=== PATIENT | male | born 1940 | race Caucasian/White ===

== ENCOUNTER 2016-08-27 01:07 | Outpatient (CLI) | payer MEDICARE, OTHER | END 2016-08-27 01:08 | disposition critical access hospital (66) | DX: R46.89 Other symptoms and signs involving appearance and behavior (principal) | CPT/HCPCS: A0425; A0429 ==

== ENCOUNTER 2016-08-27 01:23 | Emergency (ER) | payer MEDICARE, OTHER ==
--- NOTE | 2016-08-27 01:33 | ED Physician Documentation ---
PD HPI ALTERED MENTAL STATUS - Stated complaint Stated Complaint: AGGRESSIVE W/STAFF - Chief complaint Chief Complaint: Neuro - History obtained from History obtained from: Family, EMS, Other (patient is too demented to contribute to HPI or ROS.) - History of Present Illness Timing - onset: Other Basline status: Ambulatory, Confused, Disoriented, Assisted living Recently seen: Not recently seen - Additional information Additional information: patient was being aggressive with staff of [facility] and thus sent to emergency department. he started living at [facility] a few weeks ago. Review of Systems Unable to obtain: Dementia PD PAST MEDICAL HISTORY - Past Medical History Past Medical History: Yes Neuro: Other GI: GERD - Past Surgical History Past Surgical History: Yes General: Colonoscopy - Present Medications Home Medications: Ambulatory Orders Medication Instructions Recorded Confirmed Aspirin [Aspir 81] 81 mg PO DAILY 02/08/14 08/14/14 Donepezil [Aricept] 10 mg PO BID 02/08/14 08/14/14 Folic Acid 1 mg PO DAILY 02/08/14 08/14/14 Omeprazole [Prilosec] 20 mg PO DAILY 02/08/14 08/14/14 Doxycycline Hyclate [Vibramycin] 100 mg PO BID #20 capsule 08/14/14 Fluticasone Propionate [Flovent 08/14/14 08/14/14 Diskus] - Allergies Allergies/Adverse Reactions: Allergies Allergy/AdvReac Type Severity Reaction Status Date / Time No Known Drug Allergies Allergy Verified 02/08/14 10:32 - Social History Does the pt smoke?: No Smoking Status: Never smoker Does the pt drink ETOH?: Yes Does the pt have substance abuse?: No - Immunizations Immunizations are current?: Yes - POLST Patient has POLST: No PD ED PE NORMAL - Vitals Vital signs reviewed: Yes - General General: No acute distress, Well developed/nourished, Other (awake, alert, confused, inappropriate answers that are often unintelligible) - HEENT HEENT: PERRL, EOMI, Moist mucous membranes - Neck Neck: Supple, no meningeal sign - Cardiac Cardiac: RRR, No murmur - Respiratory Respiratory: No respiratory distress, Clear bilaterally - Abdomen Abdomen: Soft, Non tender - Derm Derm: Normal color, Warm and dry - Extremities Extremities: No edema - Neuro Neuro: Alert and oriented X 3, 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, No motor deficit, No sensory deficit PD ED PE EXPANDED - GCS Eye Opening: Spontaneous Motor: Obeys Commands Verbal: Confused Total: 14 Results - Vitals Vitals: Oxygen O2 Source Room air - Labs Labs: Laboratory Tests 08/27/16 08/27/16 08/27/16 01:45 01:45 02:21 WBC 9.5 RBC 4.22 L Hgb 14.8 Hct 42.6 MCV 100.9 H MCH 35.1 H MCHC 34.8 RDW 14.9 Plt Count 132 MPV 7.9 Neut # 8.7 H Lymph # 0.3 L Patrick # 0.3 Eos # 0.1 Baso # 0.2 H Absolute Nucleated RBC 0.00 Nucleated RBCs 0.0 Sodium 139 Potassium 3.9 Chloride 102 Carbon Dioxide 28 Anion Gap 9.0 BUN 21 H Creatinine 1.1 Estimated GFR (MDRD) 65 L Glucose 151 H Lactic Acid 0.9 Calcium 9.7 Total Bilirubin 1.9 H AST 23 ALT 22 Alkaline Phosphatase 81 Total Protein 7.4 Albumin 4.7 Globulin 2.7 Albumin/Globulin Ratio 1.7 Lipase 19 L Urine Color Urine Clarity Urine pH Ur Specific [place] Urine Protein Urine Glucose (UA) Urine Ketones Urine Occult Blood Urine Nitrite Urine Bilirubin Urine Urobilinogen Ur Leukocyte Esterase Ur Microscopic Review Urine Culture Comments Ethyl Alcohol < 5.0 08/27/16 02:35 WBC RBC Hgb Hct MCV MCH MCHC RDW Plt Count MPV Neut # Lymph # Patrick # Eos # Baso # Absolute Nucleated RBC Nucleated RBCs Sodium Potassium Chloride Carbon Dioxide Anion Gap BUN Creatinine Estimated GFR (MDRD) Glucose Lactic Acid Calcium Total Bilirubin AST ALT Alkaline Phosphatase Total Protein Albumin Globulin Albumin/Globulin Ratio Lipase Urine Color YELLOW Urine Clarity CLEAR Urine pH 6.0 Ur Specific [place] 1.020 Urine Protein NEGATIVE Urine Glucose (UA) NEGATIVE Urine Ketones NEGATIVE Urine Occult Blood TRACE-INTA Urine Nitrite NEGATIVE Urine Bilirubin NEGATIVE Urine Urobilinogen 0.2 (NORMAL) Ur Leukocyte Esterase NEGATIVE Ur Microscopic Review NOT INDICATED Urine Culture Comments NOT INDICATED Ethyl Alcohol - Rads (name of study) CT head Radiology: Prelim report reviewed, See rad report chest xray Radiology: Prelim report reviewed, See rad report PD MEDICAL DECISION MAKING - ED course Complexity details: reviewed results, re-evaluated patient (unremarkable test results; suspect worsening of underlying dementia, particularly with recent cues removed from patient's standpoint), considered differential, d/w patient Departure - Departure Disposition: 01 Home, Self Care Clinical Impression: Dementia Qualifiers: Qualified Code(s): F03.91 - Unspecified dementia with behavioral disturbance Condition: Good Instructions: ED Confusion, ED Dementia Caregiver Support Discharge Date/Time: 08/27/16 04:51
[2016-08-27 01:55] LABS: BASOPHILS # (AUTO) 0.2 10^3/uL (0.0-0.1); BASOPHILS % (AUTO) 2.2 %; EOSINOPHILS # (AUTO) 0.1 10^3/uL (0.0-0.7); EOSINOPHILS % (AUTO) 0.8 %; HCT - HEMATOCRIT 42.6 % (42.0-52.0); HGB - HEMOGLOBIN 14.8 g/dL (14.0-18.0); LYMPHOCYTES # (AUTO) 0.3 10^3/uL (1.5-3.5); LYMPHOCYTES % (AUTO) 3.2 %; MEAN CORPUSCULAR HEMOGLOBIN 35.1 pg (27.0-31.0); MEAN CORPUSCULAR HGB CONC 34.8 g/dL (32.0-36.0); MEAN CORPUSCULAR VOLUME 100.9 fL (80.0-94.0); MEAN PLATELET VOLUME 7.9 fL (7.4-11.4); MONOCYTES # (AUTO) 0.3 10^3/uL (0.0-1.0); MONOCYTES % (AUTO) 2.8 %; NEUTROPHILS # (AUTO) 8.7 10^3/uL (1.5-6.6); RED BLOOD COUNT 4.22 10^6/uL (4.70-6.10); RED CELL DISTRIBUTION WIDTH 14.9 % (12.0-15.0); UNCORRECTED WHITE BLOOD COUNT 9.5 x10^3/uL; WHITE BLOOD COUNT 9.5 x10^3/uL (4.8-10.8)
[2016-08-27 02:05] LABS: ALBUMIN/GLOBULIN RATIO 1.7 (1.0-2.2); BILIRUBIN,TOTAL 1.9 mg/dL (0.2-1.0); BUN - BLOOD UREA NITROGEN 21 mg/dL (6-20); CALCIUM 9.7 mg/dL (8.5-10.3); CARBON DIOXIDE - CO2 28 mmol/L (21-32); CHLORIDE 102 mmol/L (101-111); CREATININE 1.1 mg/dL (0.6-1.2); GFR - MDRD 65 (>89); GLUCOSE 151 mg/dL (70-100); LIPASE 19 U/L (22-51); POTASSIUM 3.9 mmol/L (3.5-5.0); SODIUM 139 mmol/L (135-145); TOTAL PROTEIN 7.4 g/dL (6.7-8.2)
--- NOTE | 2016-08-27 02:41 | CT Preliminary Report ---
Exam: CT Head W/O IMPRESSION: Generalized age-related cortical atrophic changes without evidence of acute intracranial abnormality. [facility] SITE ID: [id number]
--- NOTE | 2016-08-27 02:43 | CT Report ---
EXAM: CT HEAD EXAM DATE: 08/27/2016 02:20 AM. CLINICAL HISTORY: Decreased mental status. COMPARISON: 02/08/2014. TECHNIQUE: Multiaxial CT images were obtained from the foramen magnum to the vertex. IV contrast: Non e. Reformats: Coronal. In accordance with CT protocol optimization, one or more of the following dose reduction techniques w ere utilized for this exam: automated exposure control, adjustment of mA and/or KV based on patient s ize, or use of iterative reconstructive technique. FINDINGS: Parenchyma: No intraparenchymal hemorrhage. No evidence of mass, midline shift, or CT findings of acu te infarction. Rao-white differentiation is distinct. Extraaxial Spaces: Normal for age. No subdural or epidural collections identified. Ventricles: The ventricles and cortical sulci are enlarged, consistent with age-related tissue loss. Sinuses: Imaged paranasal sinuses, orbits, and mastoids show no significant abnormality. Bones: No evidence of fracture or calvarial defect. Other: Diffuse chronic microangiopathic white matter changes are evident. IMPRESSION: Generalized age-related cortical atrophic changes without evidence of acute intracranial abnormality. [facility] Referring Provider Line: [phone] SITE ID: [id number]
[2016-08-27 02:44] LABS: BILIRUBIN,URINE NEGATIVE (NEGATIVE)
--- NOTE | 2016-08-27 02:44 | XRAY Preliminary Report ---
Exam: XR Chest 2 View PA/LAT IMPRESSION: 1. Small lung volumes with borderline heart size and hypoventilatory changes. 2. Possible hiatal hernia. [facility] SITE ID: [id number]
[2016-08-27 02:45] LABS: UA CHARGE (STRIP ONLY) YES; UR CULTURE IF IND NOT INDICATED
--- NOTE | 2016-08-27 02:46 | XRAY Report ---
EXAM: CHEST RADIOGRAPHY EXAM DATE: 08/27/2016 02:21 AM. CLINICAL HISTORY: Decreased mental status. Aggressive behavior. COMPARISON: 08/14/2014. TECHNIQUE: 2 views. FINDINGS: Lungs/Pleura: Small lung volumes with hypoventilatory changes. No pleural effusion seen. No pneumotho rax. Possible hiatal hernia. Mediastinum: Heart size normal to upper normal. Other: None. IMPRESSION: 1. Small lung volumes with borderline heart size and hypoventilatory changes. 2. Possible hiatal hernia. [facility] Referring Provider Line: [phone] SITE ID: [id number]
[2016-08-27 04:30] VITALS: BP 143/80
[2016-08-27] MEDS ORDERED: QUEtiapine 25 MG TABLET PO STA (04:32)
== END 2016-08-27 04:51 | disposition home or self-care (01) ==
LOC: EDUNIT# → ED 01:23
DX: F03.91 Unspecified dementia, unspecified severity, with behavioral disturbance (principal); Z79.82 Long term (current) use of aspirin
CPT/HCPCS: 36415; 51701; 70450; 71020; 80053; 81003; 83605; 83690; 85025; 99283; 99284; A9270; G0480; 80320; 81001; 87086

== ENCOUNTER 2016-08-27 05:05 | Outpatient (CLI) | payer MEDICARE, OTHER | END 2016-08-27 05:06 | disposition home or self-care (01) | DX: F03.91 Unspecified dementia, unspecified severity, with behavioral disturbance (principal) | CPT/HCPCS: A0425; A0428 ==

== ENCOUNTER 2016-08-31 09:29 | Outpatient (CLI) | payer MEDICARE, OTHER | END 2016-08-31 09:30 | disposition critical access hospital (66) | LOC: EMS 09:29 | PROVIDERS: ATTEND Surgery | DX: R39.9 Unspecified symptoms and signs involving the genitourinary system (principal) | CPT/HCPCS: A0425; A0429 ==

== ENCOUNTER 2016-08-31 09:45 | Inpatient (IN) | payer MEDICARE, OTHER ==
[2016-08-31 10:29] LABS: BILIRUBIN,URINE NEGATIVE (NEGATIVE); PH,URINE 5.5 PH (5.0-7.5)
[2016-08-31 10:30] LABS: UA w/ MICROSCOPIC CHARGE YES
[2016-08-31 10:36] LABS: UR CULTURE IF IND NOT INDICATED; WBC,URINE 0-3 /HPF (0-3)
--- NOTE | 2016-08-31 10:37 | ED Physician Documentation ---
PD HPI MALE - Stated complaint Stated Complaint: MALE - Chief complaint Chief Complaint: Abd Pain - History obtained from History obtained from: EMS - History of Present Illness Timing - details: Gradual onset, Still present Associated symptoms: Other (incontinent and aggressive) Similar symptoms before: Has not had sx before Recently seen: Emergency Dept (Seen in the ED for aggitation and medicated with seroquel. He has continued to be aggitated and he has been re-dosed with medications and the indicates he is over sedated.) - Additional information Additional information: 76 y/o male resident of [facility] has developed acute urinary incontience. He has a distended lower abdomen and aggressive behavior. He has recently been placed at [facility] with advancing dementia. His believes his dementia was noticed about 4 years ago. Review of Systems Constitutional: denies: Fever Eyes: denies: Decreased vision Ears: denies: Ear pain Nose: denies: Congestion Throat: denies: Sore throat Respiratory: denies: Cough GI: reports: Abdominal Pain. denies: Vomiting : reports: Incontinent. denies: Dysuria Skin: denies: Rash Musculoskeletal: denies: Neck pain, Back pain, Extremity pain Neurologic: denies: Generalized weakness, Focal weakness, Numbness Psychiatric: reports: Other (aggressive) PD PAST MEDICAL HISTORY - Past Medical History Neuro: Other GI: GERD - Past Surgical History Past Surgical History: Yes General: Colonoscopy - Present Medications Home Medications: Ambulatory Orders Medication Instructions Recorded Confirmed Aspirin [Aspir 81] 81 mg PO DAILY 02/08/14 08/31/16 Donepezil [Aricept] 10 mg PO BID 02/08/14 08/31/16 Folic Acid 1 mg PO DAILY 02/08/14 08/31/16 Omeprazole [Prilosec] 20 mg PO DAILY 02/08/14 08/31/16 Doxycycline Hyclate [Vibramycin] 100 mg PO BID #20 capsule 08/14/14 08/31/16 Fluticasone Propionate [Flovent 08/14/14 08/14/14 Diskus] LORazepam [Ativan] 2 mg PO DAILY 08/31/16 08/31/16 Melatonin 5 mg 08/31/16 Memantine HCl 08/31/16 Oxybutynin Chloride 5 mg PO DAILY 08/31/16 08/31/16 QUEtiapine [SEROquel] 25 mg PO DAILY 08/31/16 08/31/16 risperiDONE [RisperDAL] 1 mg PO DAILY PRN 08/31/16 08/31/16 - Allergies Allergies/Adverse Reactions: Allergies Allergy/AdvReac Type Severity Reaction Status Date / Time No Known Drug Allergies Allergy Verified 02/08/14 10:32 - Social History Does the pt smoke?: No Smoking Status: Never smoker Does the pt drink ETOH?: Yes Does the pt have substance abuse?: No - Immunizations Immunizations are current?: Yes - POLST Patient has POLST: No PD ED PE NORMAL - Vitals Vital signs reviewed: Yes (hypertensive ) - General General: No acute distress, Well developed/nourished - HEENT HEENT: Atraumatic, PERRL, EOMI - Neck Neck: Supple, no meningeal sign - Cardiac Cardiac: RRR, No murmur - Respiratory Respiratory: No respiratory distress, Clear bilaterally - Abdomen Abdomen: Soft, Other (There is lower abdomen distention with tenderness and firmness consistent with an overdistended bladder. ) - Back Back: No CVA TTP, No spinal TTP - Derm Derm: Normal color, Warm and dry, No rash - Extremities Extremities: No deformity, No edema - Neuro Neuro: No motor deficit, No sensory deficit Results - Vitals Vitals: Vital Signs - 24 hr 08/31/16 08/31/16 08/31/16 09:46 10:23 12:13 Temperature 37.1 C Heart Rate 98 82 73 Respiratory 18 18 18 Rate Blood Pressure 161/95 H 145/92 H 135/70 H O2 Saturation 96 96 95 Oxygen O2 Source Room air - Labs Labs: Laboratory Tests 08/31/16 08/31/16 08/31/16 10:15 12:05 12:05 WBC 10.3 RBC 3.72 L Hgb 13.2 L Hct 37.3 L MCV 100.4 H MCH 35.6 H MCHC 35.5 RDW 14.9 Plt Count 115 L MPV 8.3 Neut # 8.5 H Lymph # 0.7 L [place] # 1.1 H Eos # 0.0 Baso # 0.0 Absolute Nucleated RBC 0.00 Nucleated RBCs 0.0 Sodium 142 Potassium 3.9 Chloride 104 Carbon Dioxide 27 Anion Gap 11.0 BUN 83 H* Creatinine 3.6 H Estimated GFR (MDRD) 17 L Glucose 150 H Calcium 9.7 Total Bilirubin 1.5 H AST 31 ALT 32 Alkaline Phosphatase 64 Total Protein 6.9 Albumin 4.1 Globulin 2.8 Albumin/Globulin Ratio 1.5 Lipase 21 L Urine Color YELLOW Urine Clarity CLEAR Urine pH 5.5 Ur Specific [place] 1.025 Urine Protein TRACE Urine Glucose (UA) NEGATIVE Urine Ketones NEGATIVE Urine Occult Blood LARGE H Urine Nitrite NEGATIVE Urine Bilirubin NEGATIVE Urine Urobilinogen 0.2 (NORMAL) Ur Leukocyte Esterase NEGATIVE Urine RBC 11-25 H Urine WBC 0-3 Ur Squamous Epith Cells RARE Squamous Urine Bacteria Few Ur Microscopic Review INDICATED Urine Culture Comments NOT INDICATED PD MEDICAL DECISION MAKING - ED course ED course: 76 y/o male is found to have acute urinary retention and a spears is placed. He is aggressive and requires restraint. He does appear sedated and his BUN and Cr are consistent with 3 days of obstruction. There is some blood in the urine after obstruction is resolved. Departure - Departure Disposition: [address] [facility] DC/Xfer Clinical Impression: Acute urinary retention, Acute kidney injury Dementia Qualifiers: Dementia type: Alzheimer's disease Alzheimer's disease onset: unspecified onset Dementia behavioral disturbance: with behavioral disturbance Qualified Code(s): G30.8 - Other Alzheimer's disease; F02.81 - Dementia in other diseases classified elsewhere with behavioral disturbance
[2016-08-31 12:16] LABS: BASOPHILS % (AUTO) 0.3 %; EOSINOPHILS % (AUTO) 0.2 %; HCT - HEMATOCRIT 37.3 % (42.0-52.0); HGB - HEMOGLOBIN 13.2 g/dL (14.0-18.0); LYMPHOCYTES # (AUTO) 0.7 10^3/uL (1.5-3.5); LYMPHOCYTES % (AUTO) 6.4 %; MEAN CORPUSCULAR HEMOGLOBIN 35.6 pg (27.0-31.0); MEAN CORPUSCULAR HGB CONC 35.5 g/dL (32.0-36.0); MEAN CORPUSCULAR VOLUME 100.4 fL (80.0-94.0); MEAN PLATELET VOLUME 8.3 fL (7.4-11.4); MONOCYTES # (AUTO) 1.1 10^3/uL (0.0-1.0); MONOCYTES % (AUTO) 10.3 %; NEUTROPHILS # (AUTO) 8.5 10^3/uL (1.5-6.6); NEUTROPHILS % (AUTO) 82.8 %; RED BLOOD COUNT 3.72 10^6/uL (4.70-6.10); RED CELL DISTRIBUTION WIDTH 14.9 % (12.0-15.0); UNCORRECTED WHITE BLOOD COUNT 10.3 x10^3/uL; WHITE BLOOD COUNT 10.3 x10^3/uL (4.8-10.8)
[2016-08-31 12:40] LABS: ALBUMIN/GLOBULIN RATIO 1.5 (1.0-2.2); BILIRUBIN,TOTAL 1.5 mg/dL (0.2-1.0); CALCIUM 9.7 mg/dL (8.5-10.3); CREATININE 3.6 mg/dL (0.6-1.2); POTASSIUM 3.9 mmol/L (3.5-5.0); TOTAL PROTEIN 6.9 g/dL (6.7-8.2)
[2016-08-31] MEDS ORDERED: SODIUM CHLORIDE 0.9% 1,000 ML IV ONE (13:05)
[2016-08-31] MEDS ORDERED: SODIUM CHLORIDE FLUSH 0.9% 10 ML SYRINGE IVP PRN (14:04)
[2016-08-31] MEDS: SODIUM CHLORIDE FLUSH 0.9% 10 ML SYRINGE IVP SCH (20:19)
[2016-08-31] MEDS: SODIUM CHLORIDE 0.9% 1,000 ML IV SCH (20:19)
[2016-08-31] MEDS: DONEPEZIL 5 MG TABLET PO SCH (20:25)
[2016-08-31] MEDS: TAMSULOSIN 0.4 MG CAPSULE PO SCH (20:25)
[2016-08-31] MEDS: MEMANTINE 5 MG TABLET PO SCH (20:25)
--- NOTE | 2016-08-31 21:21 | Ultrasound Preliminary Report ---
Exam: US Retroperitoneal Limited IMPRESSION: 1. Limited exam. Findings are suspicious for mild right renal pelviectasis. [facility] SITE ID: [id number]
--- NOTE | 2016-08-31 21:23 | Ultrasound Report ---
EXAM: RENAL ULTRASOUND Retroperitoneal limited EXAM DATE: 08/31/2016 08:17 PM. CLINICAL HISTORY: 1.5L urinary retention, obstructive acute kidney . King placed. COMPARISON: None. TECHNIQUE: Real-time scanning was performed with static images obtained. FINDINGS: Limited bedside exam due to patient agitation. Right Kidney: 10 x 6.2 x 5.7 cm. Renal cortical thickness and echotexture appear within normal limit s. Findings are suspicious for mild right renal pelviectasis. Limited exam. Left Kidney: 9.2 x 4.5 x 5.3 cm. Normal echotexture with no stones, contour-deforming masses, or hyd ronephrosis. Bladder: Bladder is decompressed. King catheter is in place. Limited bedside exam due to patient agitation. IMPRESSION: 1. Limited exam. Findings are suspicious for mild right renal pelviectasis. [facility] Referring Provider Line: [phone] SITE ID: [id number]
[2016-08-31] MEDS ORDERED: QUEtiapine 25 MG TABLET ONE (21:25)
[2016-08-31] MEDS ORDERED: QUEtiapine 25 MG TABLET PO SCH (22:00)
[2016-09-01] MEDS: QUEtiapine 25 MG TABLET PO PRN ×3 (04:55→18:26)
[2016-09-01] MEDS: SODIUM CHLORIDE FLUSH 0.9% 10 ML SYRINGE IVP SCH ×3 (05:11→21:43)
[2016-09-01 06:01] LABS: HCT - HEMATOCRIT 33.2 % (42.0-52.0); HGB - HEMOGLOBIN 11.6 g/dL (14.0-18.0); MEAN CORPUSCULAR HEMOGLOBIN 35.5 pg (27.0-31.0); MEAN CORPUSCULAR HGB CONC 34.8 g/dL (32.0-36.0); MEAN PLATELET VOLUME 8.7 fL (7.4-11.4); RED BLOOD COUNT 3.25 10^6/uL (4.70-6.10); RED CELL DISTRIBUTION WIDTH 14.7 % (12.0-15.0); WHITE BLOOD COUNT 6.9 x10^3/uL (4.8-10.8)
[2016-09-01] MEDS: PANTOPRAZOLE 40 MG TABLET PO SCH (06:08)
[2016-09-01] MEDS: SODIUM CHLORIDE 0.9% 1,000 ML IV SCH ×4 (06:08→23:07)
[2016-09-01 06:17] LABS: CREATININE 1.4 mg/dL (0.6-1.2); MAGNESIUM 2.3 mg/dL (1.7-2.8); PHOSPHORUS 2.4 mg/dL (2.5-4.6); POTASSIUM 3.5 mmol/L (3.5-5.0)
--- NOTE | 2016-09-01 06:42 | HISTORY & PHYSICAL EXAMINATION ---
DATE OF ADMISSION: 08/31/2016 PRIMARY CARE PHYSICIAN: Dr. Durbin. He has also [facility] Vital MD,Neurology. CHIEF COMPLAINT: Per the patient's , he got 2 mg of lorazepam at [facility] and has been minimally responsive ever since. HISTORY OF PRESENT ILLNESS: The patient is a 76-year-old gentleman, retired from the , who worked for the [employer], who as of 3-1/2 weeks is a resident of the Dementia Unit of [facility] [place]. He unfortunately needed to be placed there for progressive agitated dementia; up until that point he had been able to be at home, with his taking care of him. At home , for his dementia he had been on memantine, donzepil and seroquel at . His is Maru. He is brought to the hospital today from [facility] due to hypoactive delirium. Four days ago, on the 27 of August, he was brought to the emergency room because of aggressiveness at [facility]. Here a CT of the head and workup for any infection or metabolic problems was done with no localizing findings, and he was sent back to [facility]. On the , evidently again there was an episode of agitated delirium, and some complaint of nonspecifc abdominal pain, and in the dementia unit where he is, for the first time since his residency there, he was given 2 mg of oral lorazepam. (of note the MAR from there indicates 1/2 of a 2 mg Ativan, but Mrs Ortiz says they gave him the full 2 mg tablet.) Mrs. Ortiz notes that the next morning she went to help feed him breakfast, and when he got there, 2 assistants were helping him get out of the bathroom, and she says he could barely stand without a 2-person assist. He helped to feed him , but he was minimally responsive and did not recognize her. This is an especially profound change in this gentleman, as even with his dementia, he had continued to do his exercises such as pushups and had been continuing his exercise regimen even in the dementia unit of [facility].. Mrs Hickman denies any other new deficits, and his cognition prior to this dose of Ativan, but she does note that the agitation and delirium had been slowly building at home, as well, and that is why he had to be eventually placed. The other significant finding with his dementia, is that for probably over 2 months , she has noticed that he is having some hallucinations. She says usually they are "benevolent" people/hallucinations, but recently he had to get her downstairs when he was still at home, saying that there were bloody bodies and babies in the house. She also on occasion had to use her cane to push him away and tell him not to come near her, as his aggressive tendencies progressed. When he was brought to the emergency room today, August 31, 2016, not only was he very sedate, but he was found to have a significant abdominal distention, was found to have 1500 mL of urinary retention, which drained immediately upon a Spears catheter placement, and his BUN and creatinine were markedly changed from just 4 days ago; they had been BUN and creatinine 21 and 1.1, and now were 83 and 3.6. Of note, he has been on an anticholinergic in the form of oxybutynin 3 times daily 5 mg tablets; however, he has been on those since at least the beginning of August and late July per his MAR. Ms Ortiz indicates his prostate was "checked" recently and she was told it was not enlareged, however, she does report he had hesitancy and frequency, and "went into the bathroom frequenctly " when he was still home, but she realizes she cant say wheter he actually voided on each of the bathroom visits. PAST MEDICAL HISTORY 1. Dementia, and he is followed Darlene Vital MD, and as above most recent requiring admission to an inpatient dementia unit. 2. GERD. 3. No reported history of benign prostatic hypertrophy but urinary symptoms at night as above. No history of hypertension, coronary disease, diabetes, or cancer. 4. No history of surgical procedures. MEDICATIONS This is obtained from [facility]: 1. Oxybutynin 5 mg tabs 3 times daily. 2. Omeprazole 20 mg 3 times daily. 3. Quetiapine 25 mg tablets once daily some time between 6 and 10 p.m per JUN. 4. Vitamin D 5000 units once daily. 5. Artificial tears. He has only gotten them once on 08/30/2016. 6.. Aspirin 81 mg once daily. (unclear indication) 2. Dulcolax tablets 5 mg was given on 08/26/2016 through the 08/31/2015 consecutive days each day. 3. Donepezil 23 mg 1 tablet at bedtime. 4. Folic acid 400 mcg once daily. 5. Melatonin 5 mg tablet one daily at bedtime. 6. Memantine hydrochloride 10 mg twice daily. 7. Risperdal 1 mg tablet 3 times daily if needed for delusional episodes or agitation. He was given 2 of those doses on 08/27/2016; otherwise, there are none in the last 30 days, and also on 08/27/2016 and one on 08/28/2016 of the Risperdal 1 mg tablets. 8. Lorazepam 2 mg tablet half a tab by mouth every 8 hours as needed. He was given that on 08/29/2016 and 08/30/2016. ALLERGIES: NO KNOWN DRUG ALLERGIES. HABITS: He smoked many years ago but quit in the 1960s. He was never a heavy drinker and never used use any sort of recreational or illicit drugs. He has been for at least 52 years to his . He has been on [place] since 1981. He has 2 children. With his work, he worked for a [employer] and was stationed in many areas, including [facility], [place], and [facility]. REVIEW OF SYSTEMS CONSTITUTIONAL: Review of systems obtained from the . She denies any unintentional weight loss. No fevers. HEAD, EARS, EYES, NOSE, AND THROAT: She denies that he has complained of any vision changes; does not wear glasses. CARDIOVASCULAR: She denies that he has had any complaints of chest pain, heart racing, shortness of breath, or lower extremity edema. RESPIRATORY: No cough or wheezing. GASTROINTESTINAL: She denies any appetite change. No vomiting or diarrhea. She says he does have generally a good bowel movement when they give him his MiraLax. No blood per rectum, as far she knows. GENITOURINARY: She says that his prostate was recently checked, and "it was not enlarged." She says that he did frequently go to the bathroom, although she cannot be certain that he actually had a void and so would go in there, so it is positive for frequency. She denies dysuria. MUSCULOSKELETAL: She did recently note that he has a knee ecchymoses. She did say he has not had any falls when he was home with her, but she thinks he has probably had at least one fall in the half-way. Of note, he would jog and do exercises when he was at home and had continued in his dementia hewitt. SKIN: As noted, she notes a small bruise on his left knee and behind his left knee. NEUROLOGIC: As per the HPI. He does, in addition to the hallucinations, have fairly recent onset of hand tremors bilaterally and some stumbling, which is new. She denies any trouble chewing or swallowing. Hallucinations as noted above. ENDOCRINE: She denies any excessive thirst or excessive appetite, although he is asking for something to drink right now. PHYSICAL EXAMINATION IN THE EMERGENCY ROOM VITAL SIGNS: He is afebrile at 36.7, heart rate 71, respiratory rate 12-18 with a room air oxygenation of 95% to 98%, blood pressure 131/68. On presentation prior to decompression of his bladder, he was 161/95 with a heart rate of 98. GENERAL: Although he is minimally arousable right now, just his overall gestalt is of a very fit 74-year-old who looks younger than stated age. He has balding hair. HEAD, EYES, EARS, NOSE, AND THROAT: He has a normocephalic, atraumatic head. He occasionally opens his eyes spontaneously, but when I try to open them with a thumb to do a pupil assessment with the light, he squeezes them shut. From what I am able to tell, his pupils are reactive. Sclera are anicteric. He will not open his mouth for me, but per his , he still has his own teeth. I am not able to tell if his tongue is dry. SKIN: Overall his skin is warm and dry. His cheeks are somewhat flushed. NECK: Supple. He has +2 carotids with no bruit. CHEST: Very fit looking, especially for 74-year-old. HEART: Regular S1, S2 with no appreciable extra sounds. He has no appreciable lower extremity edema. His periphery is warm. There are no varicosities, RESPIRATIONS: Respirations were auscultated anteriorly, were clear to auscultation. They are unlabored at rest on no oxygen. ABDOMEN: Very slightly rounded. It is soft, nontender with positive bowel sounds. There is no suprapubic tenderness elicited. There is no organomegaly appreciated. He has a Spears catheter, which is draining blood tinged urine. There is currently 600 mL in the bag, and the nurse notes that is new since the 1500 mL initial output with the Spears was placed. EXTREMITIES He has 2+ reflexes bilaterally and brachial. His muscular tone is normal, and especially good a 74-year-old, both of his upper and lower extremities. NEUROLOGICAL: Exam was precluded by his very drowsy state. Occasionally he tries to mutter something unintelligible. He does not identify his right now, and again his eyes are mostly shut, other than squeezing them shut when I try to look into them, and holding his mouth shut when I tried to look into it; and she indicates that is "pretty much how he has been since he got the dose of Ativan. LABORATORY/STUDIES CBC: White count 10.3, hemoglobin 13.2, hematocrit 37.3; platelets 215,000. CHEMISTRY: Sodium 142, potassium 3.9, chloride 104, bicarbonate 27, BUN 83, creatinine 3.6, glucose 150; this is in marked contradistinction to his BUN and creatinine just 4 days ago on 08/27/2016, which were BUN 21 and creatinine 1.1; and at that time, his CBC was not much different, but his hematocrit was 42.6 URINALYSIS: Today after Spears placement, large occult blood, 11-25 red cells, and again, this is after a Spears placement, rare squamous cells and a few bacteria. Head CT was not done today; head CT done on 08/27/2016 showed generalized age- related cortical atrophic changes without acute intracranial abnormality. Chest x-ray on 08/27/2016 showed small lung volumes with borderline heart size and hypoventilatory changes, possible hernia. An ultrasound of both kidneys is ordered and has not been obtained. ASSESSMENT AND PLAN 1. Acute urinary retention: He likely does have BPH, given the blood in the spears bag post placement. ER MD Rivas did not have difficulty with placement. He has already decompressed his bladder with a Spears placement for over 1500 mL. Will start Flomax this pm. Flomax can cause orthostasis, which I would prefer not to cause in this older gentleman, but it sounds like BPH might be a problem and flomax would likely permit earlier removal than would Proscar. . The Spears catheter will remain in place. Unfortunately, it might need to stay in place minimum 7 days before trial removal given the severity of retention although ideally, given his occasional agitation it would be removed as soon as possilbe. Possibly his Ditropan that he is on and is relatevely news even contributing to the problem, given this is an anticholinergic agent, and we will certainly hold it while he has a Spears catheter in place. It would likely be prudent not to renew (of note, inreviewing a discharge summary from 2 yrs ago , he was on far fewer medications, and "less is more " is likley the best approach with his dementia. 2. Acute kidney injury. Given the abrupt change in renal function over 4 days, this is most consistent with obstructive MARTHA. . He will have renal ultrasound of the kidneys done tonight to evaluate if he does have a corresponding hydronephrosis bilaterally, but this was very acute since Wednesday. I will explore also whether lorazepam can actually cause retention as well, but it sounds as though he was having some hesitancy to begin with. As above the ditropan may have been a factor in the retention. Certainly we will avoid lorazepam. He will have gentle hydration as per routine recommendations for post -obstructive MARTHA. he is not having an overly brisk diuresis.. There is no need to have aggressive diuresis. I will recheck potassium, magnesium, and phosphorus in the morning, in case those are low with the diuresis. 3. Hypoactive delirium. Despite his recent history of agitated dementia, he currently has hypoactive delirium likely related to lorazepam. As above, we will not give him any further benzodiazepine, and the recommendation from the neurologist (per the ) was that when and if he requires further medication for agitation, it would be to increase his Seroquel dose, possibly to 25 mg twice daily, or 50 mg at bedtime and NOT to use benzodiazepines. We will see if we can contact his neurologist , since we do not have a geriatric psych person available. 4.) Dementia. He will continue on his Aricept and memantine, as well as nightly Seroquel which I will resume alrume already tonight as per the RN he is already taking sips of fluid by straw. . He should not have any further benzodiazepine. This this gentleman does not have any diagnosis yet of a possible Lewy body dementia; however, the hallucinations, especially along with the 's report of recent start of tremor, as well as some stumbles, could be the start of early parkinsonism. This would be suggestive of Lewy body dementia, since the dementia started prior to the parkinson like symptoms. However, those symptoms could also be simply related to medications. On discharge, we will be sure that Dr. Vital, his neurologist, is aware of the new occasional tremulousness and stumbles, in case he does have early Lewy body dementia. 5. Venous thromboembolism prophylaxis. He will be on Lovenox. 6. COR status. confirms that he is still at this time a FULL CODE. 7. GERD: He will continue on his Prilosec. The does confirm that he does have reflux, and he has a has a hernia 8. Unclear indication for ASA. No DM, CAD, HTN, nor risks for stroke. on d/c consider PCP reeval indication for the ASA. It is just one additional pill he needs to take. Unclear indication Time spent on admit 45+ mins. JOB #: [id number] EXT JOB #:[id number] YANN
[2016-09-01] MEDS: ENOXAPARIN 30 MG/0.3 ML SYRINGE SUBQ SCH (08:53)
[2016-09-01] MEDS: TAMSULOSIN 0.4 MG CAPSULE PO SCH (08:54)
[2016-09-01] MEDS: POLYETHYLENE GLYCOL 3350 17 GM PACKET PO SCH (08:54)
[2016-09-01] MEDS: NEUTRA-PHOS 250 MG TABLET PO SCH ×3 (08:54→18:26)
[2016-09-01] MEDS: FOLIC ACID 1 MG TABLET PO SCH (08:54)
[2016-09-01] MEDS: MEMANTINE 5 MG TABLET PO SCH ×2 (08:54→21:43)
[2016-09-01] MEDS ORDERED: POLYETHYLENE GLYCOL 3350 17 GM PACKET PO SCH (09:00)
--- NOTE | 2016-09-01 11:30 | PROVIDER PROGRESS NOTE ---
Subjective - Prog Note Date Prog Note Date: 09/01/16 (Followup for altered mental status changes and ) Prog Note Time: 11:27 - Subjective Pt reports feeling: Improved Subjective: Patient was seen at bedside. He is eating breakfast without difficulty with the nurse feeding him. He has been agitated and has a history of dementia. Per family patient was in his usual state of health prior to coming to the hospital. He is able to perform all his ADLs without difficulty. he has been talking without difficulty and only agitated certain times. He was given ativan while in the ER and the seems to think he is behaving this way due to the ativan. He can follow simple commands. His sensory is intact. Patient has had no fever, no chills or sweats. He has no constipation or diarrhea. He has not been having any bloody stools or hematuria Current Medications - Current Medications Current Medications: Active Medications Generic Name Dose Route Start Last Admin Trade Name Miahq PRN Reason Stop Dose Admin Donepezil HCl 20 mg 08/31/16 21:00 08/31/16 20:25 Aricept PO 20 mg QPM RAOUL Administration Enoxaparin Sodium 30 mg 09/01/16 09:00 09/01/16 08:53 Lovenox SUBQ Not Given DAILY RAOUL Folic Acid 0.5 mg 09/01/16 09:00 09/01/16 08:54 PO 0.5 mg DAILY RAOUL Administration Sodium Chloride 1,000 mls @ 100 mls/hr 08/31/16 17:00 09/01/16 06:08 Normal Saline 0.9% IV 100 mls/hr .Q10H RAOUL Administration Memantine 10 mg 08/31/16 21:00 09/01/16 08:54 Namenda PO 10 mg BID RAOUL Administration Pantoprazole Sodium 40 mg 09/01/16 07:00 09/01/16 06:08 Protonix PO 40 mg QDAC RAOUL Administration Polyethylene Glycol 17 gm 09/01/16 09:00 09/01/16 08:54 Miralax PO 17 gm DAILY RAOUL Administration Polyethylene Glycol 17 gm 09/01/16 09:00 09/01/16 09:16 Miralax PO Not Given DAILY RAOUL Quetiapine Fumarate 25 mg 09/01/16 21:00 Seroquel PO QPM RAOUL Quetiapine Fumarate 12.5 mg 08/31/16 21:40 09/01/16 10:12 Seroquel PO 12.5 mg TID PRN Administration Anxiety Sodium Chloride 10 ml 08/31/16 14:04 Normal Saline Flush 0.9% IVP PRN PRN NEEDED PER PROVIDER ORDERS Sodium Chloride 10 ml 08/31/16 22:00 09/01/16 13:34 Normal Saline Flush 0.9% IVP Not Given Q8HR RAOUL Sodium Phosphate 250 mg 09/01/16 08:00 09/01/16 12:58 K-Phos Neutral PO Not Given TIDWM RAOUL Tamsulosin HCl 0.4 mg 08/31/16 20:00 09/01/16 08:54 Flomax PO 0.4 mg DAILY RAOUL Administration Aspirin [Aspir 81] 81 mg PO DAILY 02/08/14 Omeprazole [Prilosec] 20 mg PO DAILY 02/08/14 Bisacodyl 5 mg PO DAILY PRN 08/31/16 Cholecalciferol [Vitamin D3] 5,000 units PO DAILY 08/31/16 Donepezil HCl [Aricept] 23 mg PO QPM 08/31/16 Folic Acid 400 mcg PO DAILY 08/31/16 LORazepam [Ativan] 1 mg PO Q8H PRN 08/31/16 Melatonin 5 mg PO QPM 08/31/16 Memantine HCl 10 mg PO BID 08/31/16 Oxybutynin Chloride 5 mg PO TID 08/31/16 Polyethylene Glycol 3350 [Miralax] 17 gm PO DAILY 08/31/16 QUEtiapine [SEROquel] 25 mg PO QPM 08/31/16 Tamsulosin [Flomax] 0.8 mg PO DAILY PM 08/31/16 Objective - Vital Signs/Intake & Output Vital Signs: Vital Signs x48h Temp Pulse Resp BP Pulse Ox 09/01/16 09:00 37 C 76 20 152/77 H 95 09/01/16 04:35 37.1 C 94 16 144/78 H 96 Intake & Output: Intake & Output 08/29/16 08/30/16 08/31/16 09/01/16 23:59 23:59 23:59 23:59 Intake Total 1419 1350 Output Total 1525 550 Balance -106 800 - Objective General Appearance: positive: Alert Eyes Bilateral: positive: PERRL ENT: positive: Pharynx nml, No signs of dehydration Neck: positive: Thyroid nml, No JVD, Trachea midline Respiratory: positive: No respiratory distress, Breath sounds nml Cardiovascular: positive: No murmur, No gallop. negative: Bradycardia, JVD present Peripheral Pulses: 2+ Radial (R), 2+ Radial (L), 2+ Dorsalis pedis (R), 2+ Dorsalis pedis (L) Abdomen: positive: No organomegaly, Nml bowel sounds, No distention. negative: Guarding, Rebound, Splenomegaly Rectal: negative: Black stool Back: positive: Other (distended and with spears). negative: CVA tenderness (R) , CVA tenderness (L) Skin: positive: Color nml, No rash, Warm, Dry. negative: Cyanosis Extremities: positive: Full ROM. negative: Pedal edema, Calf tenderness Neurologic/Psychiatric: positive: Sensation nml, Disoriented to person, Disoriented to place, Disoriented to time, Weakness. negative: Facial droop, Slurred/abnml speech Babinski Reflex: Right: Up, Left: Up - Lab Results Fish Bones: 09/01/16 05:50 09/01/16 05:50 Other Labs: Lab Results x24hrs 09/01/16 09/01/16 Range/Units 05:50 05:50 WBC 6.9 (4.8-10.8) x10^3/uL RBC 3.25 L (4.70-6.10) 10^6/uL Hgb 11.6 L (14.0-18.0) g/dL Hct 33.2 L (42.0-52.0) % MCV 102.0 H (80.0-94.0) fL MCH 35.5 H (27.0-31.0) pg MCHC 34.8 (32.0-36.0) g/dL RDW 14.7 (12.0-15.0) % Plt Count 98 L (130-450) 10^3/uL MPV 8.7 (7.4-11.4) fL Sodium 146 H (135-145) mmol/L Potassium 3.5 (3.5-5.0) mmol/L Chloride 112 H (101-111) mmol/L Carbon Dioxide 27 (21-32) mmol/L Anion Gap 7.0 (6-13) BUN 51 H (6-20) mg/dL Creatinine 1.4 H (0.6-1.2) mg/dL Estimated GFR (MDRD) 49 L (>89) Glucose 151 H (70-100) mg/dL Calcium 9.0 (8.5-10.3) mg/dL Phosphorus 2.4 L (2.5-4.6) mg/dL Magnesium 2.3 (1.7-2.8) mg/dL - Diagnostic Imaging Diagnostic Imaging Comments: Pending MRI of the brain. patient is still having altered mental changes. will check for acute CVA since a CT was completed a week ago without a repeat. Assessment/Plan - Problem List (1) Acute kidney injury Impression: improving. continue with IVF NS for hydration and avoid nephrotoxic medications. urology consult needed. spears to gravity and monitor output. no obstruction or hydronephrosis per ultrasound. continue to monitor for infection. (2) Acute encephalopathy Impression: ongoing. continue to monitor for mental changes and for metabolic changes. He is better eating today but still disoriented. continue with the seroquel and aricept. continue with the mittens. CBC and CMP ordered for morning. Ammonia level WNL. no acidosis. MRI to rule out acute stroke. fall precautions. PT evaluation. OT evaluation (3) Acute urinary retention Impression: ongoing. continue with spears and monitor output. continue to monitor kidney function. urinalysis was negative. continue with flomax. (4) Iron deficiency anemia Impression: new. continue to monitor CBC for acute blood loss. vitamin B12 level on the low end. will give B12 injection. ferrous sulfate ordered. Qualifiers: Iron deficiency anemia type: unspecified iron deficiency Qualified Code(s) : D50.9 - Iron deficiency anemia, unspecified (5) Lewy body dementia with behavioral disturbance Impression: chronic and ongoing. continue with aricept and seroquel. avoid benzodiazepines. haldol if needed IM. continue on fall precautions. rule out CVA and possible seizures. Time spent with patient for assessment and planning was 40 minutes. he will need another 24-48 hours for additional diagnostics and IV medications that have high risk for toxicity.
[2016-09-01 13:30] LABS: IRON 42 ug/dL (45-182); TOTAL IRON BINDING CAPACITY 221 ug/dL (250-450); TRANSFERRIN 158 mg/dL (180-329)
--- NOTE | 2016-09-01 18:37 | MRI Preliminary Report ---
Exam: MRI Brain W/O Impression: 1. Age-appropriate senescent change. 2. A mild to moderate amount of white matter disease is identified in the supratentorial brain. The f indings are relatively nonspecific, however, this most likely represents chronic microangiopathy. 3. 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 The etiology of the previous hemorrhage is unclear. Also some demonstrated is a small rounded focus of magnetic susceptibility artifact in left occipital lob e that probably represents hemosiderin from previous micro hemorrhage. Differential diagnostic consid erations for the subarachnoid and intraparenchymal hemorrhages would include amyloid angiopathy. 4. No other significant intracranial pathology is identified on this unenhanced brain MRI. In particu lar, there is no evidence of infarction or other acute brain abnormality. Comment: Given the presence of superficial siderosis, further evaluation with intracranial CTA or MRA would be warranted to exclude the possibility of intracranial aneurysm. SITE ID: [id number]
--- NOTE | 2016-09-01 18:56 | MRI Report ---
MRI BRAIN WITHOUT CONTRAST INDICATION: 76-year-old male with altered mental status. The patient received 2 mg of lorazepam at [facility] and apparently has been minimally responsive ever since. There is clinical conc nancy for possible CVA. TECHNIQUE: 1. T1 sagittal and fat saturated T2 coronal. 2. Axial T1, FLAIR, T2, T2* and DWI. COMPARISON: Head CT 08/27/2016. FINDINGS: There is generalized, cerebral/cerebellar volume loss with associated ex vacuo ventriculomegaly. The degree of volume loss is considered within normal limits for stated age. No evidence of hydrocephalus . A mild to moderate amount of white matter disease is identified in the supratentorial brain, manifest ed as focal and confluent T2 hyperintensities that are scattered throughout the periventricular, deep and subcortical white matter bilaterally. There is involvement of the right subinsular region as wel l. Signal intensity of cortex and white matter is otherwise unremarkable. The right vertebral artery is hypoplastic. Small size makes assessment difficult. However, otherwise, there appear to be flow voids for the main intracranial arteries. No abnormal diffusion restriction is demonstrated. There is superficial siderosis over the right parieto-occipital and posterior temporal lobes and over the posterior left parietal lobe, consistent with the sequela of prior subarachnoid hemorrhage. In a ddition, a small rounded focus of magnetic susceptibility artifact is identified in subcortical white matter and left occipital lobe. This likely represents hemosiderin from previous microhemorrhage. No other potential acute or chronic hemorrhage is identified on the T2* GRE sequence. No abnormal extra-axial fluid collection. No mass effect or midline shift. Limited assessment of the orbits reveals no gross pathology. Mild mucosal thickening is seen scattered throughout the ethmoid air cells. The paranasal sinuses are otherwise clear. No significant mastoid or middle ear effusion is demonstrated. IMPRESSION: 1. Age-appropriate senescent change. 2. A mild to moderate amount of white matter disease is identified in the supratentorial brain. The f indings are relatively nonspecific; however, this most likely represents chronic microangiopathy. 3. 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 The etiology of the previous hemorrhage is unclear. Also demonstrated is a small rounded focus of magnetic susceptibility artifact in left occipital lobe that probably represents hemosiderin from previous parenchymal micro hemorrhage. Differential diagnostic considerations for the subarachnoid and parenchymal hemorrhages would include amyloid angiopathy. 4. No other significant intracranial pathology is identified on this unenhanced brain MRI. In particu lar, there is no evidence of infarction or other acute brain abnormality. COMMENT: Given the presence of superficial siderosis, further evaluation with intracranial CTA or MRA would be warranted to exclude the possibility of intracranial aneurysm. Referring Provider Line: [phone] SITE ID: [id number]
[2016-09-01] MEDS ORDERED: CYANOCOBALAMIN 1,000 MCG/ML VIAL IM ONE (19:00)
[2016-09-01] MEDS ORDERED: CYANOCOBALAMIN 1,000 MCG/ML VIAL IM SCH (21:30)
[2016-09-01] MEDS: QUEtiapine 25 MG TABLET PO SCH (21:43)
[2016-09-01] MEDS: DONEPEZIL 5 MG TABLET PO SCH (21:43)
[2016-09-02 06:05] LABS: BASOPHILS % (AUTO) 0.5 %; EOSINOPHILS # (AUTO) 0.2 10^3/uL (0.0-0.7); EOSINOPHILS % (AUTO) 2.2 %; HCT - HEMATOCRIT 33.2 % (42.0-52.0); HGB - HEMOGLOBIN 11.4 g/dL (14.0-18.0); LYMPHOCYTES # (AUTO) 0.8 10^3/uL (1.5-3.5); LYMPHOCYTES % (AUTO) 11.7 %; MEAN CORPUSCULAR HEMOGLOBIN 34.9 pg (27.0-31.0); MEAN CORPUSCULAR HGB CONC 34.5 g/dL (32.0-36.0); MEAN CORPUSCULAR VOLUME 101.2 fL (80.0-94.0); MEAN PLATELET VOLUME 7.9 fL (7.4-11.4); MONOCYTES # (AUTO) 0.5 10^3/uL (0.0-1.0); MONOCYTES % (AUTO) 7.6 %; NEUTROPHILS # (AUTO) 5.3 10^3/uL (1.5-6.6); RED BLOOD COUNT 3.28 10^6/uL (4.70-6.10); RED CELL DISTRIBUTION WIDTH 14.4 % (12.0-15.0); UNCORRECTED WHITE BLOOD COUNT 6.8 x10^3/uL; WHITE BLOOD COUNT 6.8 x10^3/uL (4.8-10.8)
[2016-09-02 06:18] LABS: ALBUMIN/GLOBULIN RATIO 1.3 (1.0-2.2); BILIRUBIN,TOTAL 1.8 mg/dL (0.2-1.0); CALCIUM 8.8 mg/dL (8.5-10.3); MAGNESIUM 1.9 mg/dL (1.7-2.8); POTASSIUM 3.5 mmol/L (3.5-5.0); TOTAL PROTEIN 5.4 g/dL (6.7-8.2)
[2016-09-02] MEDS: PANTOPRAZOLE 40 MG TABLET PO SCH (06:55)
[2016-09-02] MEDS: SODIUM CHLORIDE FLUSH 0.9% 10 ML SYRINGE IVP SCH ×3 (06:55→21:31)
[2016-09-02] MEDS: NEUTRA-PHOS 250 MG TABLET PO SCH ×3 (08:57→19:43)
[2016-09-02] MEDS: FOLIC ACID 1 MG TABLET PO SCH (08:57)
[2016-09-02] MEDS: CHOLECALCIFEROL 5,000 UNIT CAPSULE PO SCH (08:57)
[2016-09-02] MEDS: MEMANTINE 5 MG TABLET PO SCH ×2 (08:57→21:28)
[2016-09-02] MEDS: TAMSULOSIN 0.4 MG CAPSULE PO SCH (08:57)
[2016-09-02] MEDS ORDERED: THIAMINE 100 MG/1 ML 2 ML MDV IM SCH (09:00)
[2016-09-02] MEDS: ENOXAPARIN 30 MG/0.3 ML SYRINGE SUBQ SCH (09:00)
[2016-09-02] MEDS: POLYETHYLENE GLYCOL 3350 17 GM PACKET PO SCH (09:01)
[2016-09-02] MEDS: SODIUM CHLORIDE 0.9% 1,000 ML IV SCH ×2 (09:32→19:42)
[2016-09-02 09:55] LABS: HEMOGLOBIN A1C 0.51 g/dL
[2016-09-02] MEDS ORDERED: HALOPERIDOL 5 MG/ML VIAL IM ONE ×2 (10:30→17:30)
[2016-09-02] MEDS: THIAMINE 100 MG TABLET PO SCH (13:04)
--- NOTE | 2016-09-02 17:32 | Ultrasound Preliminary Report ---
Exam: US Bladder IMPRESSION: No evident bladder wall mass. [facility] SITE ID: [id number]
--- NOTE | 2016-09-02 17:35 | Ultrasound Report ---
EXAM: PELVIS ULTRASOUND, LIMITED EXAM DATE: 09/02/2016 04:59 PM. CLINICAL HISTORY: Retention and bleeding in spears. COMPARISON: None. TECHNIQUE: Real-time scanning was performed with static images obtained. FINDINGS: The urinary bladder measures 13.4 x 6.4 x 11.2 cm, yielding a bladder volume of 500 ML. Lay ering debris is seen posteriorly, which may represent hemorrhage. No focal bladder mass is identified . Spears catheter balloon is seen. No significant post void residual following unclamping of the Spears catheter. IMPRESSION: No evident bladder wall mass. [facility] Referring Provider Line: [phone] SITE ID: [id number]
[2016-09-02] MEDS ORDERED: GADOBUTROL 15 MMOL/15 ML VIAL IV ONE (17:49)
--- NOTE | 2016-09-02 18:27 | PROVIDER PROGRESS NOTE ---
Assessment/Plan - Problem List (1) Acute encephalopathy Assessment/Plan: ongoing. Patient still remains altered. MRI of brain shows possible old subarachnoid hemorrhage and amyloid angiopathy. Patient pending MRA and MRI of neck and head. continue fallprecautions and monitor for fever or chills. Continue with medications for dementia. Patient had some mild tremors today across chest and hands. will rule out possible metabolic or drug induced. Recommend an EEG when able outpatient. patient will need transfer for microbleeds and CVA (2) Acute kidney injury Assessment/Plan: Improving. continue with IVF NS and monitor output. Bladder ultrasound completed with hematuria noted in bladder. avoid nephrotoxic medications. CMP in the morning (3) Acute urinary retention Assessment/Plan: ongoing. will continue to monitor for output and continue on flomax. will need urology followup outpatient. continue with spears to gravity (4) Iron deficiency anemia Qualifiers: Iron deficiency anemia type: unspecified iron deficiency Qualified Code(s) : D50.9 - Iron deficiency anemia, unspecified Assessment/Plan: ongoing. continue to monitor CBC and iron supplementation. (5) Lewy body dementia with behavioral disturbance Assessment/Plan: ongoing. continue with aricept and seroquel home dosage medications - Current Meds Current Meds: Current Medications Generic Name Dose Route Start Last Admin Trade Name Freq PRN Reason Stop Dose Admin Cholecalciferol 5,000 unit 09/02/16 09:00 09/02/16 08:57 Vitamin D3 PO 5,000 unit DAILY RAOUL Administration Donepezil HCl 20 mg 08/31/16 21:00 09/01/16 21:43 Aricept PO 20 mg QPM RAOUL Administration Enoxaparin Sodium 30 mg 09/01/16 09:00 09/02/16 09:00 Lovenox SUBQ 30 mg DAILY RAOUL Administration Folic Acid 0.5 mg 09/01/16 09:00 09/02/16 08:57 PO 0.5 mg DAILY RAOUL Administration Sodium Chloride 1,000 mls @ 100 mls/hr 08/31/16 17:00 09/02/16 09:32 Normal Saline 0.9% IV 100 mls/hr .Q10H RAOUL Administration Memantine 10 mg 08/31/16 21:00 09/02/16 08:57 Namenda PO 10 mg BID RAOUL Administration Pantoprazole Sodium 40 mg 09/01/16 07:00 09/02/16 06:55 Protonix PO 40 mg QDAC RAOUL Administration Polyethylene Glycol 17 gm 09/01/16 09:00 09/02/16 09:01 Miralax PO Not Given DAILY RAOUL Quetiapine Fumarate 25 mg 09/01/16 21:00 09/01/16 21:43 Seroquel PO 25 mg QPM RAOUL Administration Quetiapine Fumarate 12.5 mg 08/31/16 21:40 09/01/16 18:26 Seroquel PO 12.5 mg TID PRN Administration Anxiety Sodium Chloride 10 ml 08/31/16 22:00 09/02/16 13:08 Normal Saline Flush 0.9% IVP Not Given Q8HR RAOUL Sodium Phosphate 250 mg 09/01/16 08:00 09/02/16 13:04 K-Phos Neutral PO 250 mg TIDWM RAOUL Administration Tamsulosin HCl 0.4 mg 08/31/16 20:00 09/02/16 08:57 Flomax PO 0.4 mg DAILY RAOUL Administration Thiamine HCl 100 mg 09/02/16 11:00 09/02/16 13:04 Vitamin B-1 PO 100 mg DAILY RAOUL Administration - Lab Result Lab results reviewed: Yes Fish Bone Diagrams: 09/03/16 07:51 09/03/16 07:51 Other Lab Results: Abnormal Lab Results 09/01/16 09/01/16 09/01/16 05:50 05:50 11:50 RBC 3.25 10^6/uL L 10^6/uL (4.70-6.10) Hgb 11.6 g/dL L g/dL (14.0-18.0) Hct 33.2 % L % (42.0-52.0) MCV 102.0 fL H fL (80.0-94.0) MCH 35.5 pg H pg (27.0-31.0) Plt Count 98 10^3/uL L 10^3/uL (130-450) Lymph # Sodium 146 mmol/L H mmol/L (135-145) Chloride 112 mmol/L H mmol/L (101-111) BUN 51 mg/dL H mg/dL (6-20) Creatinine 1.4 mg/dL H mg/dL (0.6-1.2) Estimated GFR (MDRD) 49 L (>89) Glucose 151 mg/dL H mg/dL (70-100) Estim Average Glucose Phosphorus 2.4 mg/dL L mg/dL (2.5-4.6) Iron 42 ug/dL L ug/dL (45-182) TIBC 221 ug/dL L ug/dL (250-450) % Saturation 19 % L % (20-50) Transferrin 158 mg/dL L mg/dL (180-329) Total Bilirubin Total Protein Albumin 09/02/16 09/02/16 09/02/16 05:54 05:54 05:54 RBC 3.28 10^6/uL L 10^6/uL (4.70-6.10) Hgb 11.4 g/dL L g/dL (14.0-18.0) Hct 33.2 % L % (42.0-52.0) MCV 101.2 fL H fL (80.0-94.0) MCH 34.9 pg H pg (27.0-31.0) Plt Count 114 10^3/uL L 10^3/uL (130-450) Lymph # 0.8 10^3/uL L 10^3/uL (1.5-3.5) Sodium Chloride BUN 29 mg/dL H mg/dL (6-20) Creatinine Estimated GFR (MDRD) 73 L (>89) Glucose 126 mg/dL H mg/dL (70-100) Estim Average Glucose 126 H (70-100) Phosphorus Iron TIBC % Saturation Transferrin Total Bilirubin 1.8 mg/dL H mg/dL (0.2-1.0) Total Protein 5.4 g/dL L g/dL (6.7-8.2) Albumin 3.0 g/dL L g/dL (3.2-5.5) - Diagnostic Imaging Results Diagnostic Imaging Results: positive: Prelim report reviewed Diagnostic Imaging Results Comments: Impression for bladder ultrasound was no bladder wall mass and possible hemorrhage. - Additional Planning Condition/Complexity: Stable My Orders: My Active Orders 09/02/16 Evaluate and Treat PT [PT] Routine 09/02/16 09:00 Cholecalciferol [Vitamin D3] 5,000 unit PO DAILY 09/02/16 09:43 Evaluate and Treat OT [OT] Routine 09/02/16 11:00 Thiamine [Vitamin B-1] 100 mg PO DAILY 09/02/16 17:00 Angio Brain W/O (MRA) [MRI] Stat Angio Neck W/WO (MRA) [MRI] Stat Consult/Specialty: Urology Plan Discussed with:: Patient, Spouse Time Spent: 31-60 minutes Additional Planning Notes: Patient continues with changes in mental status. Unclear whether or not this could be related to possible aneurysm in the brain since it was noted in the most recent MRI of the brain the possibility for subacute hemorrhages. Subjective - Subjective Patient Reports: Resting Comfortably, No Complaints, Dizzines, Fatigue (patient is still having episodes of agitation and forgetfulness) Nursing Reports: Confused, Sedated Objective Vital Signs: Vital Signs - 24 hr 09/01/16 09/02/16 09/02/16 21:00 00:55 04:21 Temperature 36.7 C 37.2 C 37.3 C Heart Rate [ 71 68 65 Brachial] Respiratory 18 24 20 Rate Blood Pressure 110/69 [Left Brachial artery] Blood Pressure 117/69 115/68 [Right Brachial artery] O2 Saturation 94 97 97 09/02/16 09/02/16 09/02/16 08:20 13:00 14:25 Temperature 36.8 C 36.3 C L 37.7 C H Heart Rate [ 88 78 Brachial] Respiratory 19 20 Rate Blood Pressure 172/91 H 155/81 H [Left Brachial artery] Blood Pressure [Right Brachial artery] O2 Saturation 97 94 09/02/16 15:30 Temperature 37.2 C Heart Rate [ 75 Brachial] Respiratory 20 Rate Blood Pressure 145/79 H [Left Brachial artery] Blood Pressure [Right Brachial artery] O2 Saturation 94 Oxygen O2 Source Room air I&O (Last 24 Hrs): Intake and Output Totals x24h 08/31/16 09/01/16 09/02/16 23:59 23:59 23:59 Intake Total 1419 3190 1144 Output Total 1525 2200 1500 Balance -106 990 -356 General: Alert, No acute distress HEENT: PERRLA Neck: Supple, No JVD Neuro: Alert, Disoriented Cardiovascular: Regular rate Respiratory: Chest non-tender, No respiratory distress Abdomen: Normal bowel sounds (pending MRA and MRI of neck and brain- likely subaracnoid heorrhages), Soft Genitourinary: Abnormal Prostate Rectal: Stool - Heme NEG Extremities: No clubbing, No cyanosis, No edema Skin: No rashes, No significant lesion - Results Results: Laboratory Results WBC 6.8 x10^3/uL (4.8-10.8) 09/02/16 05:54 RBC 3.28 10^6/uL (4.70-6.10) L 09/02/16 05:54 Hgb 11.4 g/dL (14.0-18.0) L 09/02/16 05:54 Hct 33.2 % (42.0-52.0) L 09/02/16 05:54 MCV 101.2 fL (80.0-94.0) H 09/02/16 05:54 MCH 34.9 pg (27.0-31.0) H 09/02/16 05:54 MCHC 34.5 g/dL (32.0-36.0) 09/02/16 05:54 RDW 14.4 % (12.0-15.0) 09/02/16 05:54 Plt Count 114 10^3/uL (130-450) L 09/02/16 05:54 MPV 7.9 fL (7.4-11.4) 09/02/16 05:54 Neut # 5.3 10^3/uL (1.5-6.6) 09/02/16 05:54 Lymph # 0.8 10^3/uL (1.5-3.5) L 09/02/16 05:54 Sequoyah # 0.5 10^3/uL (0.0-1.0) 09/02/16 05:54 Eos # 0.2 10^3/uL (0.0-0.7) 09/02/16 05:54 Baso # 0.0 10^3/uL (0.0-0.1) 09/02/16 05:54 Absolute Nucleated RBC 0.00 x10^3/uL 09/02/16 05:54 Nucleated RBCs 0.0 /100WBC 09/02/16 05:54 Sodium 145 mmol/L (135-145) 09/02/16 05:54 Potassium 3.5 mmol/L (3.5-5.0) 09/02/16 05:54 Chloride 111 mmol/L (101-111) 09/02/16 05:54 Carbon Dioxide 27 mmol/L (21-32) 09/02/16 05:54 Anion Gap 7.0 (6-13) 09/02/16 05:54 BUN 29 mg/dL (6-20) H 09/02/16 05:54 Creatinine 1.0 mg/dL (0.6-1.2) 09/02/16 05:54 Estimated GFR (MDRD) 73 (>89) L 09/02/16 05:54 Glucose 126 mg/dL (70-100) H 09/02/16 05:54 Glycated Hemoglobin 6.0 % (4.6-6.2) 09/02/16 05:54 Estim Average Glucose 126 (70-100) H 09/02/16 05:54 Calcium 8.8 mg/dL (8.5-10.3) 09/02/16 05:54 Phosphorus 2.4 mg/dL (2.5-4.6) L 09/01/16 05:50 Magnesium 1.9 mg/dL (1.7-2.8) 09/02/16 05:54 Iron 42 ug/dL (45-182) L 09/01/16 11:50 TIBC 221 ug/dL (250-450) L 09/01/16 11:50 % Saturation 19 % (20-50) L 09/01/16 11:50 Transferrin 158 mg/dL (180-329) L 09/01/16 11:50 Total Bilirubin 1.8 mg/dL (0.2-1.0) H 09/02/16 05:54 AST 28 IU/L (10-42) 09/02/16 05:54 ALT 31 IU/L (10-60) 09/02/16 05:54 Alkaline Phosphatase 52 IU/L (42-121) 09/02/16 05:54 Ammonia 14.1 umol/L (7-35) 09/01/16 11:50 CK-MB (CK-2) 2.0 ng/mL (0.6-6.3) 09/01/16 11:50 Total Protein 5.4 g/dL (6.7-8.2) L 09/02/16 05:54 Albumin 3.0 g/dL (3.2-5.5) L 09/02/16 05:54 Globulin 2.4 g/dL (2.1-4.2) 09/02/16 05:54 Albumin/Globulin Ratio 1.3 (1.0-2.2) 09/02/16 05:54 Lipase 21 U/L (22-51) L 08/31/16 12:05 Vitamin B12 441 pg/mL (180-914) 09/01/16 11:50 Urine Color YELLOW 08/31/16 10:15 Urine Clarity CLEAR (CLEAR) 08/31/16 10:15 Urine pH 5.5 PH (5.0-7.5) 08/31/16 10:15 Ur Specific Deloit 1.025 (1.002-1.030) 08/31/16 10:15 Urine Protein TRACE mg/dL (NEGATIVE) 08/31/16 10:15 Urine Glucose (UA) NEGATIVE mg/dL (NEGATIVE) 08/31/16 10:15 Urine Ketones NEGATIVE mg/dL (NEGATIVE) 08/31/16 10:15 Urine Occult Blood LARGE (NEGATIVE) H 08/31/16 10:15 Urine Nitrite NEGATIVE (NEGATIVE) 08/31/16 10:15 Urine Bilirubin NEGATIVE (NEGATIVE) 08/31/16 10:15 Urine Urobilinogen 0.2 (NORMAL) E.U./dL (NORMAL) 08/31/16 10:15 Ur Leukocyte Esterase NEGATIVE (NEGATIVE) 08/31/16 10:15 Urine RBC 11-25 /HPF (0-5) H 08/31/16 10:15 Urine WBC 0-3 /HPF (0-3) 08/31/16 10:15 Ur Squamous Epith Cells RARE Squamous (<= Few) 08/31/16 10:15 Urine Bacteria Few /HPF (None Seen) 08/31/16 10:15 Ur Microscopic Review INDICATED 08/31/16 10:15 Urine Culture Comments NOT INDICATED 08/31/16 10:15
--- NOTE | 2016-09-02 18:40 | MRI Preliminary Report ---
Exam: MRI Angio Brain W/O (MRA) Impression: 1. No significant pathology is identified involving main branches of the anterior circulation. 2. Absence of flow related enhancement in the right vertebral artery is concerning for occlusion, age indeterminate. 3. A flow gap is identified in distal V4 segment left vertebral artery, suggesting high-grade stenosi s. In addition, there is a relatively severe, mid basilar artery stenosis. The actual degree of narro wing could be further assessed with CT angiography, as desired, assuming the patient has adequate cata al function. 4. Of note, the basilar artery effectively terminates as the bilateral superior cerebellar arteries. The posterior cerebral arteries fill from the anterior circulation by means of fairly large bilateral posterior committee indicating artery spur SITE ID: [id number]
--- NOTE | 2016-09-02 18:48 | MRI Preliminary Report ---
Exam: MRI Angio Neck W/WO (MRA) Impression: 1. Minor atherosclerotic change at the carotid bifurcations without associated hemodynamically signif icant carotid artery stenosis. 2. The origin/proximal V1 segment of the right vertebral artery are not well seen and the possibility of hemodynamically significant stenosis at the origin cannot be excluded. The right vertebral artery is of small caliber but appears patent throughout the V2 and V3 segments. However, there are multi focal, severe stenoses in the V4 segment. No obvious filling of right PICA i s demonstrated. 3. Severe focal stenosis, V4 segment left vertebral artery at the junction between the mid and distal thirds. The left vertebral artery is otherwise unremarkable. However, there is a severe, focal steno sis in the mid basilar artery as demonstrated on [place] [facility] MR angiogram. SITE ID: [id number]
[2016-09-02] MEDS ORDERED: OLANZapine 10 MG VIAL IM ONE (19:04)
--- NOTE | 2016-09-02 19:38 | MRI Report ---
MR ANGIOGRAM [place] OF SETH WITHOUT CONTRAST INDICATION: 76 rolled male with altered mental status brain MRI from yesterday demonstrated superfici al siderosis. MR angiography has been requested to evaluate for possible intracranial aneurysm. TECHNIQUE: 3-D [id number] MR angiography. COMPARISON: None. FINDINGS: There is minor irregularity in the contour of the carotid siphons, probably from atherosclerotic dise ase. No hemodynamically significant ICA stenosis is demonstrated. The A1 segment of the right anterio r cerebral artery is hypoplastic with dominant left A1 segment. An anterior communicating artery is d emonstrated. Flow related enhancement is seen in the imaged A2 branches. The middle cerebral arteries are unremarkable. No aneurysm is identified and there is no evidence of occlusion or hemodynamically significant stenosis involving main branches of either MCA. There is flow-related enhancement in the distal V3 segment of the right vertebral artery. However, no flow-related enhancement is demonstrated in the V4 segment, suggesting probable occlusion, age indet erminant. Reduced degree of flow related enhancement in the left V4 segment is probably artifactual. There appears to be a small left PICA. Assessment is limited due to presumed artifact; however, there appears to be a flow gap in distal V4 segments of left vertebral artery, probably extending to verte brobasilar junction. This extends over a distance of roughly 3.7 mm (see image 9 of series 403) and i s consistent with high-grade stenosis. There is diffuse irregularity in the basilar artery. There loy ears to be severe focal narrowing in mid basilar artery at about the level of the takeoff of the righ t anterior inferior cerebellar artery. More distally the basilar artery is larger. The basilar artery effectively terminates as the superior cerebellar arteries. The P1 segments of the posterior cerebra l arteries are either extremely hypoplastic or developmentally absent. There are fairly large posteri or communicating arteries that supply the P2 and distal MOTOR PATROL OPERATOR branches. The licensed insurance sales agent are not well assessed beyond the P2 segments and patency beyond the P2 segments cannot be confirmed. No aneurysms are seen arising from the basilar artery trunk or apex. IMPRESSION: 1. No significant pathology is identified involving main branches of the anterior circulation. 2. Absence of flow related enhancement in the right vertebral artery is concerning for occlusion, age indeterminate. 3. A flow gap is identified in distal V4 segment left vertebral artery, suggesting high-grade stenosi s. 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 The actual degree of narrow ing could be further assessed with CT angiography, as desired, assuming the patient has adequate shorty l function. 4. Of note, the basilar artery effectively terminates as the bilateral superior cerebellar arteries. The posterior cerebral arteries fill from the anterior circulation by means of fairly large bilateral posterior communicating arteries. Referring Provider Line: [phone] SITE ID: [id number]
--- NOTE | 2016-09-02 19:39 | MRI Report ---
MR ANGIOGRAM NECK WITHOUT AND WITH CONTRAST INDICATION: 76-year-old male with altered mental status. Please assess. TECHNIQUE: 1. T1 fat-saturated axial sequence. 2. 2-D [id number] MR angiography. 3. 3-D gadolinium-enhanced MR angiography. 10 mL IV Gadavist. Significant arterial stenoses will be assessed using NASCET type measurements. COMPARISON: None. FINDINGS: There is normal branching of the aortic arch. No stenoses are identified in the first order, supra-ao rtic arteries. Right carotid artery: The common carotid artery is widely patent. There is minor irregularity along the posterior wall in t he proximal bulb, probably from calcified atherosclerotic plaque. The lumen appears to be reduced to about 3 mm. More distally, the ICA measures about 4 mm. 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 Left carotid artery: Minimal irregularity in the carotid bulb. No stenosis. Right vertebral artery: The origin and proximal V1 segment are not well assessed and the possibility of hemodynamically signi ficant stenosis at the origin cannot be excluded. The V2 segment is small but patent. The proximal an d mid V3 segment appear small but patent. The horizontal limb of the distal V3 segment has a larger c aliber. However, there appear to be high-grade, multifocal stenoses in the V4 segments throughout its intracranial course. Left vertebral artery: Dominant left vertebral artery appears to be widely patent at its origin and throughout its V2 and V3 segments. There is severe focal narrowing in the V4 segment, near the junction between the middle an d distal thirds. In addition, there is severe focal stenosis in mid basilar artery as demonstrated on intracranial MRA. IMPRESSION: 1. Minor atherosclerotic change at the carotid bifurcations without associated hemodynamically signif icant carotid artery stenosis. 2. The origin/proximal V1 segment of the right vertebral artery are not well seen and the possibility of hemodynamically significant stenosis at the origin cannot be excluded. The right vertebral artery is of small caliber but appears patent throughout the V2 and V3 segments. However, there are multifocal, severe stenoses in the V4 segment. No obvious filling of right PICA is demonstrated. 3. Severe focal stenosis, V4 segment left vertebral artery near the junction between the mid and dist al thirds. The left vertebral artery is otherwise unremarkable. However, there is a severe, focal hemal nosis in the mid basilar artery as demonstrated on the [place] Miller MR angiogram. Referring Provider Line: [phone] SITE ID: [id number]
[2016-09-02] MEDS: DONEPEZIL 5 MG TABLET PO SCH (21:28)
[2016-09-02] MEDS: QUEtiapine 25 MG TABLET PO SCH (21:28)
[2016-09-02] MEDS ORDERED: MIN OIL/DIMETHICON/COCONUT OIL 92 GM TUBE TOP ONE (22:18)
[2016-09-03] MEDS: SODIUM CHLORIDE 0.9% 1,000 ML IV SCH ×2 (05:17→15:39)
[2016-09-03] MEDS: SODIUM CHLORIDE FLUSH 0.9% 10 ML SYRINGE IVP SCH ×3 (05:18→19:53)
[2016-09-03] MEDS: PANTOPRAZOLE 40 MG TABLET PO SCH (06:18)
[2016-09-03 07:57] LABS: HCT - HEMATOCRIT 33.5 % (42.0-52.0); HGB - HEMOGLOBIN 12.1 g/dL (14.0-18.0); MEAN CORPUSCULAR HEMOGLOBIN 35.8 pg (27.0-31.0); MEAN CORPUSCULAR HGB CONC 36.1 g/dL (32.0-36.0); MEAN PLATELET VOLUME 7.5 fL (7.4-11.4); RED BLOOD COUNT 3.39 10^6/uL (4.70-6.10); RED CELL DISTRIBUTION WIDTH 14.4 % (12.0-15.0); WHITE BLOOD COUNT 7.3 x10^3/uL (4.8-10.8)
[2016-09-03 08:10] LABS: ALBUMIN/GLOBULIN RATIO 1.2 (1.0-2.2); BILIRUBIN,TOTAL 1.7 mg/dL (0.2-1.0); CALCIUM 8.7 mg/dL (8.5-10.3); CREATININE 0.8 mg/dL (0.6-1.2); POTASSIUM 3.5 mmol/L (3.5-5.0); TOTAL PROTEIN 5.6 g/dL (6.7-8.2)
[2016-09-03] MEDS: ENOXAPARIN 30 MG/0.3 ML SYRINGE SUBQ SCH (09:26)
[2016-09-03] MEDS: NEUTRA-PHOS 250 MG TABLET PO SCH ×2 (09:27→13:17)
[2016-09-03] MEDS: POLYETHYLENE GLYCOL 3350 17 GM PACKET PO SCH (09:27)
[2016-09-03] MEDS: MEMANTINE 5 MG TABLET PO SCH ×2 (09:28→19:53)
[2016-09-03] MEDS: TAMSULOSIN 0.4 MG CAPSULE PO SCH (09:28)
[2016-09-03] MEDS: CHOLECALCIFEROL 5,000 UNIT CAPSULE PO SCH (09:29)
[2016-09-03] MEDS: THIAMINE 100 MG TABLET PO SCH (09:30)
[2016-09-03] MEDS: FOLIC ACID 1 MG TABLET PO SCH (09:30)
--- NOTE | 2016-09-03 12:50 | PROVIDER PROGRESS NOTE ---
Assessment/Plan - Problem List (1) Cerebral amyloid angiopathy Assessment/Plan: ongoing with possible sporadic seizures. consulted [facility] [place] and spoke to Dr Shi Kirby. recommended to try Keppra IV. will start patient on 1gm of Keppra and then 500mg Q12 hours. PT and OT to assess. if patient has positive response and control of the tremors and acute shaking then will continue with therapy and then discharge to skilled care with neuro followup outpatient. If no change in condition will transport to [facility] [place] for further evaluation by neurology. (2) Acute urinary retention Assessment/Plan: improving. jaymie has blood in the bladder probably related to the bleeding or micro bleeding. spears was flused and irrigated to clear. Will continue to monitor output and color changes in urine. plan to discontinue when more alert and can urinate on his own (3) Iron deficiency anemia Qualifiers: Iron deficiency anemia type: unspecified iron deficiency Qualified Code(s) : D50.9 - Iron deficiency anemia, unspecified Assessment/Plan: stable and improving. hemoglobin increased and patient did receive iron supplement. continue to monitor and ferrous sulfate ordered (4) Lewy body dementia with behavioral disturbance Assessment/Plan: ongoing. continue with Aricept and Namenda in the evening. continue to monitor behavior (5) Acute kidney injury Assessment/Plan: resolve. creatinine and BUN at baseline. continue to monitor output and electrolyte balance. avoid nephrotoxic medications - Current Meds Current Meds: Current Medications Generic Name Dose Route Start Last Admin Trade Name Damaris PRN Reason Stop Dose Admin Cholecalciferol 5,000 unit 09/02/16 09:00 09/03/16 09:29 Vitamin D3 PO 5,000 unit DAILY RAOUL Administration Donepezil HCl 20 mg 08/31/16 21:00 09/02/16 21:28 Aricept PO 20 mg QPM RAOUL Administration Enoxaparin Sodium 30 mg 09/01/16 09:00 09/03/16 09:26 Lovenox SUBQ 30 mg DAILY RAOUL Administration Folic Acid 0.5 mg 09/01/16 09:00 09/03/16 09:30 PO 0.5 mg DAILY RAOUL Administration Sodium Chloride 1,000 mls @ 100 mls/hr 08/31/16 17:00 09/03/16 05:17 Normal Saline 0.9% IV 100 mls/hr .Q10H RAOUL Administration Memantine 10 mg 08/31/16 21:00 09/03/16 09:28 Namenda PO 10 mg BID RAOUL Administration Pantoprazole Sodium 40 mg 09/01/16 07:00 09/03/16 06:18 Protonix PO 40 mg QDAC RAOUL Administration Polyethylene Glycol 17 gm 09/01/16 09:00 09/03/16 09:27 Miralax PO 17 gm DAILY RAOUL Administration Quetiapine Fumarate 25 mg 09/01/16 21:00 09/02/16 21:28 Seroquel PO 25 mg QPM RAOUL Administration Quetiapine Fumarate 12.5 mg 08/31/16 21:40 09/01/16 18:26 Seroquel PO 12.5 mg TID PRN Administration Anxiety Sodium Chloride 10 ml 08/31/16 22:00 09/03/16 05:18 Normal Saline Flush 0.9% IVP Not Given Q8HR RAOUL Sodium Phosphate 250 mg 09/01/16 08:00 09/03/16 09:27 K-Phos Neutral PO 250 mg TIDWM RAOUL Administration Tamsulosin HCl 0.4 mg 08/31/16 20:00 09/03/16 09:28 Flomax PO 0.4 mg DAILY RAOUL Administration Thiamine HCl 100 mg 09/02/16 11:00 09/03/16 09:30 Vitamin B-1 PO 100 mg DAILY RAOUL Administration - Lab Result Lab results reviewed: Yes Fish Bone Diagrams: 09/03/16 07:51 09/03/16 07:51 - EKG Results EKG Interpreted Independently: Yes EKG Comparison: Unchanged from prior EKG - Diagnostic Imaging Results Diagnostic Imaging Results: positive: Final report reviewed, See rad report Diagnostic Imaging Results Comments: chronic subarachnoid hemmorhages likely with probably amyloid angiopathy and stenosis of micro vessels - Additional Planning Condition/Complexity: Stable My Orders: My Active Orders 09/03/16 07:32 Bladder Irrigation [Urinary Catheter Flush] [RC] .once 09/03/16 13:00 levETIRAcetam INJ [Keppra Inj] 1,000 mg Sodium Chloride 0.9% 100Ml [Normal Saline 0.9% 100Ml] 100 ml IV ONCE Consult/Specialty: Neurology, OT, PT Plan Discussed with:: Family, Spouse, Case Management Time Spent: 31-60 minutes Subjective - Subjective Patient Reports: Resting Comfortably, No Complaints, Other (still having tremors and worsening agitation specifically at night. bladder irrigation was tolerated) Nursing Reports: No Complaints, Confused Objective Vital Signs: Vital Signs - 24 hr 09/02/16 09/02/16 09/02/16 13:00 14:25 15:30 Temperature 36.3 C L 37.7 C H 37.2 C Heart Rate [ 78 75 Brachial] Respiratory 20 20 Rate Blood Pressure 155/81 H 145/79 H [Left Brachial artery] Blood Pressure [Right Brachial artery] O2 Saturation 94 94 09/02/16 09/03/16 09/03/16 21:00 00:15 04:12 Temperature 36.7 C 37.5 C 37.3 C Heart Rate [ 82 71 84 Brachial] Respiratory 16 18 20 Rate Blood Pressure 120/70 166/81 H [Left Brachial artery] Blood Pressure 163/91 H [Right Brachial artery] O2 Saturation 96 94 99 09/03/16 09/03/16 07:23 12:39 Temperature 37.1 C 36.7 C Heart Rate [ 85 85 Brachial] Respiratory 16 20 Rate Blood Pressure 162/83 H 160/92 H [Left Brachial artery] Blood Pressure [Right Brachial artery] O2 Saturation 98 96 Oxygen O2 Source Room air I&O (Last 24 Hrs): Intake and Output Totals x24h 09/01/16 09/02/16 09/03/16 23:59 23:59 23:59 Intake Total 3190 1552 973 Output Total 2200 2250 1430 Balance 990 -326 -733 General: Alert, No acute distress HEENT: PERRLA Neck: No JVD, No thyromegaly, +2 carotid pulse wo bruit Lymphatic: no adenopathy Neuro: Alert, Disoriented, Other (unable to access cranial nerves due to mental status) Cardiovascular: Regular rate, Normal S1, Normal S2, No murmurs Respiratory: Chest non-tender, No respiratory distress, Breath sounds nml Abdomen: Normal bowel sounds, Soft Genitourinary: No Mass, Abnormal Prostate Extremities: No clubbing, No cyanosis, No edema, Normal pulses Skin: No rashes, No significant lesion Comments/Notes: sacral redness with wound consult pending. patient is turned every 2 hours - Results Results: Laboratory Results WBC 7.3 x10^3/uL (4.8-10.8) 09/03/16 07:51 RBC 3.39 10^6/uL (4.70-6.10) L 09/03/16 07:51 Hgb 12.1 g/dL (14.0-18.0) L 09/03/16 07:51 Hct 33.5 % (42.0-52.0) L 09/03/16 07:51 MCV 99.0 fL (80.0-94.0) H 09/03/16 07:51 MCH 35.8 pg (27.0-31.0) H 09/03/16 07:51 MCHC 36.1 g/dL (32.0-36.0) H 09/03/16 07:51 RDW 14.4 % (12.0-15.0) 09/03/16 07:51 Plt Count 123 10^3/uL (130-450) L 09/03/16 07:51 MPV 7.5 fL (7.4-11.4) 09/03/16 07:51 Neut # 5.3 10^3/uL (1.5-6.6) 09/02/16 05:54 Lymph # 0.8 10^3/uL (1.5-3.5) L 09/02/16 05:54 [place] # 0.5 10^3/uL (0.0-1.0) 09/02/16 05:54 Eos # 0.2 10^3/uL (0.0-0.7) 09/02/16 05:54 Baso # 0.0 10^3/uL (0.0-0.1) 09/02/16 05:54 Absolute Nucleated RBC 0.00 x10^3/uL 09/02/16 05:54 Nucleated RBCs 0.0 /100WBC 09/02/16 05:54 Sodium 141 mmol/L (135-145) 09/03/16 07:51 Potassium 3.5 mmol/L (3.5-5.0) 09/03/16 07:51 Chloride 107 mmol/L (101-111) 09/03/16 07:51 Carbon Dioxide 27 mmol/L (21-32) 09/03/16 07:51 Anion Gap 7.0 (6-13) 09/03/16 07:51 BUN 16 mg/dL (6-20) 09/03/16 07:51 Creatinine 0.8 mg/dL (0.6-1.2) 09/03/16 07:51 Estimated GFR (MDRD) 94 (>89) 09/03/16 07:51 Glucose 143 mg/dL (70-100) H 09/03/16 07:51 Glycated Hemoglobin 6.0 % (4.6-6.2) 09/02/16 05:54 Estim Average Glucose 126 (70-100) H 09/02/16 05:54 Calcium 8.7 mg/dL (8.5-10.3) 09/03/16 07:51 Phosphorus 2.4 mg/dL (2.5-4.6) L 09/01/16 05:50 Magnesium 1.9 mg/dL (1.7-2.8) 09/02/16 05:54 Iron 42 ug/dL (45-182) L 09/01/16 11:50 TIBC 221 ug/dL (250-450) L 09/01/16 11:50 % Saturation 19 % (20-50) L 09/01/16 11:50 Transferrin 158 mg/dL (180-329) L 09/01/16 11:50 Total Bilirubin 1.7 mg/dL (0.2-1.0) H 09/03/16 07:51 AST 27 IU/L (10-42) 09/03/16 07:51 ALT 32 IU/L (10-60) 09/03/16 07:51 Alkaline Phosphatase 64 IU/L (42-121) 09/03/16 07:51 Ammonia 14.1 umol/L (7-35) 09/01/16 11:50 CK-MB (CK-2) 2.0 ng/mL (0.6-6.3) 09/01/16 11:50 Total Protein 5.6 g/dL (6.7-8.2) L 09/03/16 07:51 Albumin 3.1 g/dL (3.2-5.5) L 09/03/16 07:51 Globulin 2.5 g/dL (2.1-4.2) 09/03/16 07:51 Albumin/Globulin Ratio 1.2 (1.0-2.2) 09/03/16 07:51 Lipase 21 U/L (22-51) L 08/31/16 12:05 Vitamin B12 441 pg/mL (180-914) 09/01/16 11:50 Urine Color YELLOW 08/31/16 10:15 Urine Clarity CLEAR (CLEAR) 08/31/16 10:15 Urine pH 5.5 PH (5.0-7.5) 08/31/16 10:15 Ur Specific [place] 1.025 (1.002-1.030) 08/31/16 10:15 Urine Protein TRACE mg/dL (NEGATIVE) 08/31/16 10:15 Urine Glucose (UA) NEGATIVE mg/dL (NEGATIVE) 08/31/16 10:15 Urine Ketones NEGATIVE mg/dL (NEGATIVE) 08/31/16 10:15 Urine Occult Blood LARGE (NEGATIVE) H 08/31/16 10:15 Urine Nitrite NEGATIVE (NEGATIVE) 08/31/16 10:15 Urine Bilirubin NEGATIVE (NEGATIVE) 08/31/16 10:15 Urine Urobilinogen 0.2 (NORMAL) E.U./dL (NORMAL) 08/31/16 10:15 Ur Leukocyte Esterase NEGATIVE (NEGATIVE) 08/31/16 10:15 Urine RBC 11-25 /HPF (0-5) H 08/31/16 10:15 Urine WBC 0-3 /HPF (0-3) 08/31/16 10:15 Ur Squamous Epith Cells RARE Squamous (<= Few) 08/31/16 10:15 Urine Bacteria Few /HPF (None Seen) 08/31/16 10:15 Ur Microscopic Review INDICATED 08/31/16 10:15 Urine Culture Comments NOT INDICATED 08/31/16 10:15 - Procedures Procedures: Bladder irrigation with spears.
[2016-09-03] MEDS ORDERED: levETIRAcetam INJ 1,000 MG in SODIUM CHLORIDE 0.9% 100ML 100 ML IV ONE (13:15)
[2016-09-03] MEDS: FERROUS SULFATE 325 MG TABLET PO SCH (14:11)
[2016-09-03] MEDS: MULTIVITAMIN W/MINERALS TABLET PO SCH (14:11)
[2016-09-03] MEDS: DONEPEZIL 5 MG TABLET PO SCH (19:53)
[2016-09-03] MEDS: QUEtiapine 25 MG TABLET PO SCH (19:53)
[2016-09-04] MEDS: SODIUM CHLORIDE 0.9% 1,000 ML IV SCH (00:35)
[2016-09-04] MEDS ORDERED: levETIRAcetam INJ 500 MG in SODIUM CHLORIDE 0.9% 100ML 100 ML IV SCH (01:00)
[2016-09-04] MEDS: SODIUM CHLORIDE FLUSH 0.9% 10 ML SYRINGE IVP SCH ×3 (05:01→21:03)
[2016-09-04] MEDS: PANTOPRAZOLE 40 MG TABLET PO SCH (06:03)
[2016-09-04 06:10] LABS: INR 1.3 (0.8-1.2); PT - PROTHROMBIN TIME 14.6 secs (9.9-12.6)
[2016-09-04 06:14] LABS: ALBUMIN/GLOBULIN RATIO 1.2 (1.0-2.2); BASOPHILS % (AUTO) 0.4 %; BILIRUBIN,TOTAL 1.5 mg/dL (0.2-1.0); CALCIUM 8.6 mg/dL (8.5-10.3); CREATININE 0.7 mg/dL (0.6-1.2); EOSINOPHILS % (AUTO) 1.8 %; HGB - HEMOGLOBIN 11.8 g/dL (14.0-18.0); LYMPHOCYTES % (AUTO) 12.8 %; MAGNESIUM 1.7 mg/dL (1.7-2.8); MEAN CORPUSCULAR HEMOGLOBIN 34.6 pg (27.0-31.0); MEAN CORPUSCULAR HGB CONC 34.6 g/dL (32.0-36.0); MEAN CORPUSCULAR VOLUME 99.9 fL (80.0-94.0); MEAN PLATELET VOLUME 8.4 fL (7.4-11.4); MONOCYTES % (AUTO) 8.5 %; NEUTROPHILS % (AUTO) 76.5 %; POTASSIUM 3.3 mmol/L (3.5-5.0); RED CELL DISTRIBUTION WIDTH 14.5 % (12.0-15.0); TOTAL PROTEIN 5.6 g/dL (6.7-8.2); UNCORRECTED WHITE BLOOD COUNT 7.4 x10^3/uL; WHITE BLOOD COUNT 7.4 x10^3/uL (4.8-10.8)
[2016-09-04 06:33] LABS: BAND NEUTROPHILS % (MANUAL) 1 %; BASOPHILS % (MANUAL) 2 %; EOSINOPHILS % (MANUAL) 1 %; LYMPHOCYTES % (MANUAL) 10 %; NEUTROPHILS % (MANUAL) 76 %; PLATELET ESTIMATE, MANUAL NORMAL (130-450,000) (NORMAL); TOTAL CELLS COUNTED 100
[2016-09-04 06:34] LABS: NP AUTO DIFFERENTIAL? YES; NP MAN DIFFERENTIAL? NO
[2016-09-04] MEDS ORDERED: MAGNESIUM SULFATE 2 GRAM 50 ML IV ONE (06:59)
--- NOTE | 2016-09-04 07:00 | PROVIDER PROGRESS NOTE ---
Assessment/Plan - Problem List (1) Cerebral amyloid angiopathy Assessment/Plan: ongoing. continue with Keppra 500mg PO BID. encourage ambulation and PT and OT assist. patient will need SNF if not rehab before going back to [facility] (2) Lewy body dementia with behavioral disturbance Assessment/Plan: ongoing. continue with Aricept and Namenda home dosages. decreased seroquel dosage to only at night now (3) Hypokalemia due to loss of potassium Assessment/Plan: new onset. replace poptassium with oral 40meq and repeat levels in the morning (4) Low serum magnesium level Assessment/Plan: new onset. replace magnesium with magnesium sulfate 2gm IV and repeat levels in the morning (5) Iron deficiency anemia Qualifiers: Iron deficiency anemia type: unspecified iron deficiency Qualified Code(s) : D50.9 - Iron deficiency anemia, unspecified Assessment/Plan: improving. continue on iron supplementation and colace stool softener. continue to monitor CBC daily (6) Acute kidney injury Assessment/Plan: resolved. continue to monitor output and spears discontinued. monitor for urinary retention with bladder scan Q6 (7) Acute urinary retention Assessment/Plan: ongoing. will discontinue spears today and monitor output and avoid nephrotoxic medications. CMP to monitor kidney function - Current Meds Current Meds: Current Medications Generic Name Dose Route Start Last Admin Trade Name Damaris PRN Reason Stop Dose Admin Cholecalciferol 5,000 unit 09/02/16 09:00 09/03/16 09:29 Vitamin D3 PO 5,000 unit DAILY RAOUL Administration Donepezil HCl 20 mg 08/31/16 21:00 09/03/16 19:53 Aricept PO 20 mg QPM RAOUL Administration Enoxaparin Sodium 30 mg 09/01/16 09:00 09/03/16 09:26 Lovenox SUBQ 30 mg DAILY RAOUL Administration Ferrous Sulfate 325 mg 09/03/16 14:00 09/03/16 14:11 Feosol PO 325 mg DAILYWM RAOUL Administration Folic Acid 0.5 mg 09/01/16 09:00 09/03/16 09:30 PO 0.5 mg DAILY RAOUL Administration Sodium Chloride 1,000 mls @ 100 mls/hr 08/31/16 17:00 09/04/16 00:35 Normal Saline 0.9% IV 100 mls/hr .Q10H RAOUL Administration Levetiracetam 500 mg/ Sodium 105 mls @ 400 mls/hr 09/04/16 01:00 09/04/16 00:35 Chloride IV 09/06/16 00:59 400 mls/hr BID RAOUL Administration Memantine 10 mg 08/31/16 21:00 09/03/16 19:53 Namenda PO 10 mg BID RAOUL Administration Multivitamins/Minerals 1 tab 09/03/16 14:00 09/03/16 14:11 Theragran M PO 1 tab DAILYWM RAOUL Administration Pantoprazole Sodium 40 mg 09/01/16 07:00 09/04/16 06:03 Protonix PO 40 mg QDAC RAOUL Administration Polyethylene Glycol 17 gm 09/01/16 09:00 09/03/16 09:27 Miralax PO 17 gm DAILY RAOUL Administration Quetiapine Fumarate 25 mg 09/01/16 21:00 09/03/16 19:53 Seroquel PO 25 mg QPM RAOUL Administration Sodium Chloride 10 ml 08/31/16 22:00 09/04/16 05:01 Normal Saline Flush 0.9% IVP Not Given Q8HR RAOUL Tamsulosin HCl 0.4 mg 08/31/16 20:00 09/03/16 09:28 Flomax PO 0.4 mg DAILY RAOUL Administration Thiamine HCl 100 mg 09/02/16 11:00 09/03/16 09:30 Vitamin B-1 PO 100 mg DAILY RAOUL Administration - Lab Result Lab results reviewed: Yes Fish Bone Diagrams: 09/04/16 05:20 09/04/16 05:20 Other Lab Results: Abnormal Lab Results 09/02/16 09/03/16 09/03/16 05:54 07:51 07:51 RBC 3.39 10^6/uL L 10^6/uL (4.70-6.10) Hgb 12.1 g/dL L g/dL (14.0-18.0) Hct 33.5 % L % (42.0-52.0) MCV 99.0 fL H fL (80.0-94.0) MCH 35.8 pg H pg (27.0-31.0) MCHC 36.1 g/dL H g/dL (32.0-36.0) Plt Count 123 10^3/uL L 10^3/uL (130-450) Metamyelocytes % Myelocytes % Lymphocytes # (Manual) PT INR Potassium Glucose 143 mg/dL H mg/dL (70-100) Estim Average Glucose 126 H (70-100) Total Bilirubin 1.7 mg/dL H mg/dL (0.2-1.0) Total Protein 5.6 g/dL L g/dL (6.7-8.2) Albumin 3.1 g/dL L g/dL (3.2-5.5) 09/04/16 09/04/16 09/04/16 05:20 05:20 05:20 RBC 3.40 10^6/uL L 10^6/uL (4.70-6.10) Hgb 11.8 g/dL L g/dL (14.0-18.0) Hct 34.0 % L % (42.0-52.0) MCV 99.9 fL H fL (80.0-94.0) MCH 34.6 pg H pg (27.0-31.0) MCHC Plt Count Metamyelocytes % 2 % H % ( - 0) Myelocytes % 4 % H % ( - 0) Lymphocytes # (Manual) 0.7 10^3/uL L 10^3/uL (1.5-3.5) PT 14.6 secs H secs (9.9-12.6) INR 1.3 H (0.8-1.2) Potassium 3.3 mmol/L L mmol/L (3.5-5.0) Glucose 124 mg/dL H mg/dL (70-100) Estim Average Glucose Total Bilirubin 1.5 mg/dL H mg/dL (0.2-1.0) Total Protein 5.6 g/dL L g/dL (6.7-8.2) Albumin 3.0 g/dL L g/dL (3.2-5.5) - EKG Results EKG Interpreted Independently: No - Additional Planning Condition/Complexity: Stable My Orders: My Active Orders 09/03/16 07:32 Bladder Irrigation [Urinary Catheter Flush] [RC] .once 09/03/16 14:00 Ferrous Sulfate [Feosol] 325 mg PO DAILYWM Multivitamin W/Minerals [Theragran M] 1 tab PO DAILYWM 09/04/16 01:00 levETIRAcetam INJ [Keppra Inj] 500 mg Sodium Chloride 0.9% 100Ml [Normal Saline 0.9% 100Ml] 100 ml IV BID Consult/Specialty: Neurology, OT, PT Plan Discussed with:: Patient, Spouse, Case Management Time Spent: 31-60 minutes Additional Planning Notes: Plan is to send patient to skilled care and then to transition to [facility] when able. wants patient to return to [facility] when ready. Patient tremors have improved but still having some mild cognitive delay. continue to monitor Subjective - Subjective Patient Reports: Feeling Better, Resting Comfortably, No Complaints Nursing Reports: No Complaints (still having mild tremors but reduced agitation last night. no chest pain or shortness of breath noted) Objective Vital Signs: Vital Signs - 24 hr 09/03/16 09/03/16 09/03/16 07:23 12:39 16:44 Temperature 37.1 C 36.7 C 37.2 C Heart Rate [ 85 85 75 Brachial] Respiratory 16 20 18 Rate Blood Pressure 162/83 H 160/92 H 105/63 [Left Brachial artery] O2 Saturation 98 96 97 09/03/16 09/04/16 09/04/16 20:54 00:23 05:00 Temperature 37.2 C 37.0 C 36.9 C Heart Rate [ 76 71 77 Brachial] Respiratory 16 24 16 Rate Blood Pressure 135/80 H 127/67 142/79 H [Left Brachial artery] O2 Saturation 96 96 95 Oxygen O2 Source Room air I&O (Last 24 Hrs): Intake and Output Totals x24h 09/02/16 09/03/16 09/04/16 23:59 23:59 23:59 Intake Total 1552 2952 980 Output Total 2250 2480 1250 Balance -698 472 -270 General: Alert, No acute distress HEENT: Mucous membr. moist/pink Neck: Supple, No JVD Lymphatic: no adenopathy Neuro: Alert, Disoriented Cardiovascular: Normal S1, Normal S2, No murmurs Respiratory: Chest non-tender, No respiratory distress, Breath sounds nml Abdomen: Normal bowel sounds, Soft, No tenderness, No masses Genitourinary: Other (spears to gravity with dark yellow urine) Rectal: Stool - Heme NEG Extremities: No clubbing, No edema, No tenderness/swelling Skin: No rashes, No breakdown, No significant lesion Comments/Notes: plan to discharge to skilled care within the next 24-48 hours. Time spent was 50 minutes for planning and assessment - Results Results: Laboratory Results WBC 7.4 x10^3/uL (4.8-10.8) 09/04/16 05:20 RBC 3.40 10^6/uL (4.70-6.10) L 09/04/16 05:20 Hgb 11.8 g/dL (14.0-18.0) L 09/04/16 05:20 Hct 34.0 % (42.0-52.0) L 09/04/16 05:20 MCV 99.9 fL (80.0-94.0) H 09/04/16 05:20 MCH 34.6 pg (27.0-31.0) H 09/04/16 05:20 MCHC 34.6 g/dL (32.0-36.0) 09/04/16 05:20 RDW 14.5 % (12.0-15.0) 09/04/16 05:20 Plt Count 142 10^3/uL (130-450) 09/04/16 05:20 MPV 8.4 fL (7.4-11.4) 09/04/16 05:20 Neut # Not Reportable 09/04/16 05:20 Lymph # Not Reportable 09/04/16 05:20 [place] # Not Reportable 09/04/16 05:20 Eos # Not Reportable 09/04/16 05:20 Baso # Not Reportable 09/04/16 05:20 Absolute Nucleated RBC Not Reportable 09/04/16 05:20 Total Counted 100 09/04/16 05:20 Band Neuts % (Manual) 1 % (0-10) 09/04/16 05:20 Metamyelocytes % 2 % (-0) H 09/04/16 05:20 Myelocytes % 4 % (-0) H 09/04/16 05:20 Neutrophils # (Manual) 5.7 10^3/uL (1.5-6.6) 09/04/16 05:20 Lymphocytes # (Manual) 0.7 10^3/uL (1.5-3.5) L 09/04/16 05:20 Monocytes # (Manual) 0.3 10^3/uL (0.0-1.0) 09/04/16 05:20 Eosinophils # (Manual) 0.1 10^3/uL (0-0.7) 09/04/16 05:20 Basophils # (Manual) 0.1 10^3/uL (0-0.1) 09/04/16 05:20 Nucleated RBCs Not Reportable 09/04/16 05:20 Differential Comment MANUAL DIFFERENTIAL 09/04/16 05:20 Platelet Estimate NORMAL (130-450,000) (NORMAL) 09/04/16 05:20 RBC Morph Micro Appear NORMAL APPEARANCE (NORMAL) 09/04/16 05:20 PT 14.6 secs (9.9-12.6) H 09/04/16 05:20 INR 1.3 (0.8-1.2) H 09/04/16 05:20 Sodium 141 mmol/L (135-145) 09/04/16 05:20 Potassium 3.3 mmol/L (3.5-5.0) L 09/04/16 05:20 Chloride 108 mmol/L (101-111) 09/04/16 05:20 Carbon Dioxide 27 mmol/L (21-32) 09/04/16 05:20 Anion Gap 6.0 (6-13) 09/04/16 05:20 BUN 12 mg/dL (6-20) 09/04/16 05:20 Creatinine 0.7 mg/dL (0.6-1.2) 09/04/16 05:20 Estimated GFR (MDRD) 110 (>89) 09/04/16 05:20 Glucose 124 mg/dL (70-100) H 09/04/16 05:20 Glycated Hemoglobin 6.0 % (4.6-6.2) 09/02/16 05:54 Estim Average Glucose 126 (70-100) H 09/02/16 05:54 Calcium 8.6 mg/dL (8.5-10.3) 09/04/16 05:20 Phosphorus 2.4 mg/dL (2.5-4.6) L 09/01/16 05:50 Magnesium 1.7 mg/dL (1.7-2.8) 09/04/16 05:20 Iron 42 ug/dL (45-182) L 09/01/16 11:50 TIBC 221 ug/dL (250-450) L 09/01/16 11:50 % Saturation 19 % (20-50) L 09/01/16 11:50 Transferrin 158 mg/dL (180-329) L 09/01/16 11:50 Total Bilirubin 1.5 mg/dL (0.2-1.0) H 09/04/16 05:20 AST 27 IU/L (10-42) 09/04/16 05:20 ALT 32 IU/L (10-60) 09/04/16 05:20 Alkaline Phosphatase 72 IU/L (42-121) 09/04/16 05:20 Ammonia 14.1 umol/L (7-35) 09/01/16 11:50 CK-MB (CK-2) 2.0 ng/mL (0.6-6.3) 09/01/16 11:50 Total Protein 5.6 g/dL (6.7-8.2) L 09/04/16 05:20 Albumin 3.0 g/dL (3.2-5.5) L 09/04/16 05:20 Globulin 2.6 g/dL (2.1-4.2) 09/04/16 05:20 Albumin/Globulin Ratio 1.2 (1.0-2.2) 09/04/16 05:20 Lipase 21 U/L (22-51) L 08/31/16 12:05 Vitamin B12 441 pg/mL (180-914) 09/01/16 11:50 Urine Color YELLOW 08/31/16 10:15 Urine Clarity CLEAR (CLEAR) 08/31/16 10:15 Urine pH 5.5 PH (5.0-7.5) 08/31/16 10:15 Ur Specific [place] 1.025 (1.002-1.030) 08/31/16 10:15 Urine Protein TRACE mg/dL (NEGATIVE) 08/31/16 10:15 Urine Glucose (UA) NEGATIVE mg/dL (NEGATIVE) 08/31/16 10:15 Urine Ketones NEGATIVE mg/dL (NEGATIVE) 08/31/16 10:15 Urine Occult Blood LARGE (NEGATIVE) H 08/31/16 10:15 Urine Nitrite NEGATIVE (NEGATIVE) 08/31/16 10:15 Urine Bilirubin NEGATIVE (NEGATIVE) 08/31/16 10:15 Urine Urobilinogen 0.2 (NORMAL) E.U./dL (NORMAL) 08/31/16 10:15 Ur Leukocyte Esterase NEGATIVE (NEGATIVE) 08/31/16 10:15 Urine RBC 11-25 /HPF (0-5) H 08/31/16 10:15 Urine WBC 0-3 /HPF (0-3) 08/31/16 10:15 Ur Squamous Epith Cells RARE Squamous (<= Few) 08/31/16 10:15 Urine Bacteria Few /HPF (None Seen) 08/31/16 10:15 Ur Microscopic Review INDICATED 08/31/16 10:15 Urine Culture Comments NOT INDICATED 08/31/16 10:15
[2016-09-04] MEDS: FOLIC ACID 1 MG TABLET PO SCH (09:08)
[2016-09-04] MEDS: CHOLECALCIFEROL 5,000 UNIT CAPSULE PO SCH (09:09)
[2016-09-04] MEDS: TAMSULOSIN 0.4 MG CAPSULE PO SCH (09:09)
[2016-09-04] MEDS: THIAMINE 100 MG TABLET PO SCH (09:09)
[2016-09-04] MEDS: POLYETHYLENE GLYCOL 3350 17 GM PACKET PO SCH (09:09)
[2016-09-04] MEDS: MULTIVITAMIN W/MINERALS TABLET PO SCH (09:09)
[2016-09-04] MEDS: MEMANTINE 5 MG TABLET PO SCH ×2 (09:09→21:02)
[2016-09-04] MEDS: FERROUS SULFATE 325 MG TABLET PO SCH (09:09)
[2016-09-04] MEDS: POTASSIUM CHLORIDE 20 MEQ TABLET PO SCH (11:22)
[2016-09-04] MEDS: levETIRAcetam 100 MG/ML 473ML BOTTLE PO SCH ×2 (13:30→21:02)
[2016-09-04] MEDS: QUEtiapine 25 MG TABLET PO SCH (21:02)
[2016-09-04] MEDS: DONEPEZIL 5 MG TABLET PO SCH (21:02)
[2016-09-05 05:13] LABS: HCT - HEMATOCRIT 36.7 % (42.0-52.0); HGB - HEMOGLOBIN 12.8 g/dL (14.0-18.0); MEAN CORPUSCULAR HEMOGLOBIN 34.6 pg (27.0-31.0); MEAN CORPUSCULAR HGB CONC 34.8 g/dL (32.0-36.0); MEAN CORPUSCULAR VOLUME 99.4 fL (80.0-94.0); MEAN PLATELET VOLUME 8.1 fL (7.4-11.4); RED BLOOD COUNT 3.69 10^6/uL (4.70-6.10); RED CELL DISTRIBUTION WIDTH 14.6 % (12.0-15.0); WHITE BLOOD COUNT 8.5 x10^3/uL (4.8-10.8)
[2016-09-05 05:25] LABS: ALBUMIN/GLOBULIN RATIO 1.3 (1.0-2.2); BILIRUBIN,TOTAL 1.3 mg/dL (0.2-1.0); CALCIUM 8.9 mg/dL (8.5-10.3); CREATININE 0.7 mg/dL (0.6-1.2); POTASSIUM 3.6 mmol/L (3.5-5.0)
[2016-09-05] MEDS: PANTOPRAZOLE 40 MG TABLET PO SCH (05:50)
[2016-09-05] MEDS: SODIUM CHLORIDE FLUSH 0.9% 10 ML SYRINGE IVP SCH ×3 (05:50→21:39)
[2016-09-05] MEDS: LISINOPRIL 5 MG TABLET PO SCH (08:15)
[2016-09-05] MEDS: CHOLECALCIFEROL 5,000 UNIT CAPSULE PO SCH (08:15)
[2016-09-05] MEDS: POTASSIUM CHLORIDE 20 MEQ TABLET PO SCH (08:15)
[2016-09-05] MEDS: MEMANTINE 5 MG TABLET PO SCH ×2 (08:16→20:50)
[2016-09-05] MEDS: THIAMINE 100 MG TABLET PO SCH (08:16)
[2016-09-05] MEDS: TAMSULOSIN 0.4 MG CAPSULE PO SCH ×2 (08:17→20:50)
[2016-09-05] MEDS: MULTIVITAMIN W/MINERALS TABLET PO SCH (08:17)
[2016-09-05] MEDS: FOLIC ACID 1 MG TABLET PO SCH (08:18)
[2016-09-05] MEDS: FERROUS SULFATE 325 MG TABLET PO SCH (08:18)
[2016-09-05] MEDS: POLYETHYLENE GLYCOL 3350 17 GM PACKET PO SCH (08:19)
[2016-09-05] MEDS: levETIRAcetam 100 MG/ML 473ML BOTTLE PO SCH ×3 (08:19→20:50)
--- NOTE | 2016-09-05 08:40 | PROVIDER PROGRESS NOTE ---
Assessment/Plan - Problem List (1) Acute urinary retention Assessment/Plan: ongoing. spears removed yesterday. patient still having difficulty voiding.straight cath last night with 700 ml output. will continue to use bladder scan and monitor output.straight cath if more than 500ml in bladder. added an additional dosage of flomax. (2) Cerebral amyloid angiopathy Assessment/Plan: ongoing. continue to monitor for changes. patient is receiving Keppra for possible seizures due to worsening CAA. ordered CRP for inflammation which is elevated a t1.7. gave dose of dexamethasone 4mg PO for inflammation. patient is up sitting in chair but still not as alert. He has been waling in hallway earlier today with assist (3) Hypokalemia due to loss of potassium Assessment/Plan: resolved. continue to monitor electrolytes with morning lab draw and replete if necessary. Patient has been started on lisinipril for hypertension and will monitor kidney function as well. (4) Low serum magnesium level Assessment/Plan: resolved. continue to monitor magnesium level with morning lab draw. Replete if necessary (5) Iron deficiency anemia Qualifiers: Iron deficiency anemia type: unspecified iron deficiency Qualified Code(s) : D50.9 - Iron deficiency anemia, unspecified Assessment/Plan: improving. hemoglobin is up today. continue to monitor CBC with morning lab draw (7) Dementia Qualifiers: Dementia type: Alzheimer's disease Alzheimer's disease onset: unspecified onset Dementia behavioral disturbance: with behavioral disturbance Qualified Code(s): G30.8 - Other Alzheimer's disease; F02.81 - Dementia in other diseases classified elsewhere with behavioral disturbance Assessment/Plan: stable. probably vascular with CAA. continue to work with PT and OT. redirect when appropriate. continue with namenda and aricept at night. - Current Meds Current Meds: Current Medications Generic Name Dose Route Start Last Admin Trade Name Damaris PRN Reason Stop Dose Admin Cholecalciferol 5,000 unit 09/02/16 09:00 09/05/16 08:15 Vitamin D3 PO 5,000 unit DAILY RAOUL Administration Donepezil HCl 20 mg 08/31/16 21:00 09/04/16 21:02 Aricept PO 20 mg QPM RAOUL Administration Ferrous Sulfate 325 mg 09/03/16 14:00 09/05/16 08:18 Feosol PO 325 mg DAILYWM RAOUL Administration Folic Acid 0.5 mg 09/01/16 09:00 09/05/16 08:18 PO 0.5 mg DAILY RAOUL Administration Levetiracetam 500 mg 09/04/16 13:00 09/05/16 08:19 Keppra PO 09/06/16 12:59 Not Given BID RAOUL Lisinopril 10 mg 09/05/16 09:00 09/05/16 08:15 Zestril PO 10 mg DAILY RAOUL Administration Memantine 10 mg 08/31/16 21:00 09/05/16 08:16 Namenda PO 10 mg BID RAOUL Administration Multivitamins/Minerals 1 tab 09/03/16 14:00 09/05/16 08:17 Theragran M PO 1 tab DAILYWM RAOUL Administration Pantoprazole Sodium 40 mg 09/01/16 07:00 09/05/16 05:50 Protonix PO 40 mg QDAC RAOUL Administration Polyethylene Glycol 17 gm 09/01/16 09:00 09/05/16 08:19 Miralax PO 17 gm DAILY RAOUL Administration Potassium Chloride 20 meq 09/04/16 12:00 09/05/16 08:15 K-Dur PO 20 meq DAILYWM RAOUL Administration Quetiapine Fumarate 25 mg 09/01/16 21:00 09/04/16 21:02 Seroquel PO 25 mg QPM RAOUL Administration Sodium Chloride 10 ml 08/31/16 22:00 09/05/16 05:50 Normal Saline Flush 0.9% IVP 10 ml Q8HR RAOUL Administration Tamsulosin HCl 0.4 mg 08/31/16 20:00 09/05/16 08:17 Flomax PO 0.4 mg DAILY RAOUL Administration Thiamine HCl 100 mg 09/02/16 11:00 09/05/16 08:16 Vitamin B-1 PO 100 mg DAILY RAOUL Administration - Lab Result Fish Bone Diagrams: 09/05/16 04:55 09/05/16 04:55 - EKG Results EKG Interpreted Independently: No - Diagnostic Imaging Results Diagnostic Imaging Results: positive: Final report reviewed, Read independently - Additional Planning Condition/Complexity: Stable My Orders: My Active Orders 09/04/16 08:51 SCDs [RC] QSHIFT 09/04/16 12:00 Potassium Chloride [K-Dur] 20 meq PO DAILYWM 09/04/16 13:00 levETIRAcetam [Keppra] 500 mg PO BID 09/05/16 09:00 Lisinopril [Zestril] 10 mg PO DAILY Consult/Specialty: OT, PT Plan Discussed with:: Patient, Spouse, Case Management Time Spent: 31-60 minutes (patient will be going to [facility] and is in agreement for in the morning. patient is to be discharged in the morning. He had some urinary retention last night and will need another 24 hours to discharge due to the retention.) Subjective - Subjective Patient Reports: Resting Comfortably, No Complaints Nursing Reports: No Complaints (Tremors have lessened. patient is alert bust still confused) Objective Vital Signs: Vital Signs - 24 hr 09/04/16 09/04/16 09/04/16 10:35 10:37 13:00 Temperature 36.2 C L Heart Rate [ 79 Brachial] Heart Rate [ 79 79 Sitting] Respiratory 18 Rate Blood Pressure 139/80 H [Left Brachial artery] Blood Pressure [Right Brachial artery] Blood Pressure 150/97 H 150/97 H [Sitting] O2 Saturation 95 09/04/16 09/04/16 09/05/16 16:30 20:44 00:10 Temperature 37.1 C 36.9 C 37.0 C Heart Rate [ 92 69 71 Brachial] Heart Rate [ Sitting] Respiratory 18 18 16 Rate Blood Pressure 155/75 H 127/76 128/81 H [Left Brachial artery] Blood Pressure [Right Brachial artery] Blood Pressure [Sitting] O2 Saturation 97 95 97 09/05/16 09/05/16 04:20 08:10 Temperature 36.9 C 36.4 C L Heart Rate [ 76 85 Brachial] Heart Rate [ Sitting] Respiratory 16 18 Rate Blood Pressure 155/86 H [Left Brachial artery] Blood Pressure 105/74 [Right Brachial artery] Blood Pressure [Sitting] O2 Saturation 97 93 Oxygen O2 Source Room air I&O (Last 24 Hrs): Intake and Output Totals x24h 09/03/16 09/04/16 09/05/16 23:59 23:59 23:59 Intake Total 2952 2166 50 Output Total 2480 3300 1400 Balance 134 -5014 -3829 - Results Results: Laboratory Results WBC 8.5 x10^3/uL (4.8-10.8) 09/05/16 04:55 RBC 3.69 10^6/uL (4.70-6.10) L 09/05/16 04:55 Hgb 12.8 g/dL (14.0-18.0) L 09/05/16 04:55 Hct 36.7 % (42.0-52.0) L 09/05/16 04:55 MCV 99.4 fL (80.0-94.0) H 09/05/16 04:55 MCH 34.6 pg (27.0-31.0) H 09/05/16 04:55 MCHC 34.8 g/dL (32.0-36.0) 09/05/16 04:55 RDW 14.6 % (12.0-15.0) 09/05/16 04:55 Plt Count 163 10^3/uL (130-450) 09/05/16 04:55 MPV 8.1 fL (7.4-11.4) 09/05/16 04:55 Neut # Not Reportable 09/04/16 05:20 Lymph # Not Reportable 09/04/16 05:20 Izard # Not Reportable 09/04/16 05:20 Eos # Not Reportable 09/04/16 05:20 Baso # Not Reportable 09/04/16 05:20 Absolute Nucleated RBC Not Reportable 09/04/16 05:20 Total Counted 100 09/04/16 05:20 Band Neuts % (Manual) 1 % (0-10) 09/04/16 05:20 Metamyelocytes % 2 % (-0) H 09/04/16 05:20 Myelocytes % 4 % (-0) H 09/04/16 05:20 Neutrophils # (Manual) 5.7 10^3/uL (1.5-6.6) 09/04/16 05:20 Lymphocytes # (Manual) 0.7 10^3/uL (1.5-3.5) L 09/04/16 05:20 Monocytes # (Manual) 0.3 10^3/uL (0.0-1.0) 09/04/16 05:20 Eosinophils # (Manual) 0.1 10^3/uL (0-0.7) 09/04/16 05:20 Basophils # (Manual) 0.1 10^3/uL (0-0.1) 09/04/16 05:20 Nucleated RBCs Not Reportable 09/04/16 05:20 Differential Comment MANUAL DIFFERENTIAL 09/04/16 05:20 Platelet Estimate NORMAL (130-450,000) (NORMAL) 09/04/16 05:20 RBC Morph Micro Appear NORMAL APPEARANCE (NORMAL) 09/04/16 05:20 PT 14.6 secs (9.9-12.6) H 09/04/16 05:20 INR 1.3 (0.8-1.2) H 09/04/16 05:20 Sodium 139 mmol/L (135-145) 09/05/16 04:55 Potassium 3.6 mmol/L (3.5-5.0) 09/05/16 04:55 Chloride 105 mmol/L (101-111) 09/05/16 04:55 Carbon Dioxide 26 mmol/L (21-32) 09/05/16 04:55 Anion Gap 8.0 (6-13) 09/05/16 04:55 BUN 15 mg/dL (6-20) 09/05/16 04:55 Creatinine 0.7 mg/dL (0.6-1.2) 09/05/16 04:55 Estimated GFR (MDRD) 110 (>89) 09/05/16 04:55 Glucose 128 mg/dL (70-100) H 09/05/16 04:55 Glycated Hemoglobin 6.0 % (4.6-6.2) 09/02/16 05:54 Estim Average Glucose 126 (70-100) H 09/02/16 05:54 Calcium 8.9 mg/dL (8.5-10.3) 09/05/16 04:55 Phosphorus 2.4 mg/dL (2.5-4.6) L 09/01/16 05:50 Magnesium 2.0 mg/dL (1.7-2.8) 09/05/16 04:55 Iron 42 ug/dL (45-182) L 09/01/16 11:50 TIBC 221 ug/dL (250-450) L 09/01/16 11:50 % Saturation 19 % (20-50) L 09/01/16 11:50 Transferrin 158 mg/dL (180-329) L 09/01/16 11:50 Total Bilirubin 1.3 mg/dL (0.2-1.0) H 09/05/16 04:55 AST 33 IU/L (10-42) 09/05/16 04:55 ALT 38 IU/L (10-60) 09/05/16 04:55 Alkaline Phosphatase 78 IU/L (42-121) 09/05/16 04:55 Ammonia 14.1 umol/L (7-35) 09/01/16 11:50 CK-MB (CK-2) 2.0 ng/mL (0.6-6.3) 09/01/16 11:50 Total Protein 6.0 g/dL (6.7-8.2) L 09/05/16 04:55 Albumin 3.4 g/dL (3.2-5.5) 09/05/16 04:55 Globulin 2.6 g/dL (2.1-4.2) 09/05/16 04:55 Albumin/Globulin Ratio 1.3 (1.0-2.2) 09/05/16 04:55 Lipase 21 U/L (22-51) L 08/31/16 12:05 Vitamin B12 441 pg/mL (180-914) 09/01/16 11:50 Urine Color YELLOW 08/31/16 10:15 Urine Clarity CLEAR (CLEAR) 08/31/16 10:15 Urine pH 5.5 PH (5.0-7.5) 08/31/16 10:15 Ur Specific Bath 1.025 (1.002-1.030) 08/31/16 10:15 Urine Protein TRACE mg/dL (NEGATIVE) 08/31/16 10:15 Urine Glucose (UA) NEGATIVE mg/dL (NEGATIVE) 08/31/16 10:15 Urine Ketones NEGATIVE mg/dL (NEGATIVE) 08/31/16 10:15 Urine Occult Blood LARGE (NEGATIVE) H 08/31/16 10:15 Urine Nitrite NEGATIVE (NEGATIVE) 08/31/16 10:15 Urine Bilirubin NEGATIVE (NEGATIVE) 08/31/16 10:15 Urine Urobilinogen 0.2 (NORMAL) E.U./dL (NORMAL) 08/31/16 10:15 Ur Leukocyte Esterase NEGATIVE (NEGATIVE) 08/31/16 10:15 Urine RBC 11-25 /HPF (0-5) H 08/31/16 10:15 Urine WBC 0-3 /HPF (0-3) 08/31/16 10:15 Ur Squamous Epith Cells RARE Squamous (<= Few) 08/31/16 10:15 Urine Bacteria Few /HPF (None Seen) 08/31/16 10:15 Ur Microscopic Review INDICATED 08/31/16 10:15 Urine Culture Comments NOT INDICATED 08/31/16 10:15
[2016-09-05] MEDS ORDERED: DEXAMETHASONE 4 MG/ML VIAL IVP SCH (10:00)
--- NOTE | 2016-09-05 11:17 | CT Preliminary Report ---
Exam: CT Abdomen/Pelvis W/O IMPRESSION: 1. Atelectatic changes at the lung bases, with a moderate size hiatal hernia. 2. Mild distention of the gallbladder without evidence of stones. 3. Moderate stool burden seen in the rectal vault. 4. Moderate bony degenerative changes seen. 5. Fat-containing left inguinal hernia. [facility] SITE ID: [id number]
--- NOTE | 2016-09-05 11:20 | CT Report ---
EXAM: CT ABDOMEN AND PELVIS EXAM DATE: 09/05/2016 10:33 AM. CLINICAL HISTORY: Urinary retention and possible mass. COMPARISONS: None. TECHNIQUE: Routine helical CT imaging was performed through the abdomen and pelvis. IV contrast: None . Enteric contrast: No. Reconstructions: Coronal and sagittal. In accordance with CT protocol optimization, one or more of the following dose reduction techniques w ere utilized for this exam: automated exposure control, adjustment of mA and/or KV based on patient s ize, or use of iterative reconstructive technique. FINDINGS: Lung Bases: Atelectatic changes seen at the lung bases. There is a moderate-sized hiatal hernia prese nt. Liver: Normal. No masses. Gallbladder/Bile Ducts: There is mild distention of the gallbladder, without evidence of stones seen. Spleen: Normal. Pancreas: Normal. Adrenal Glands: Normal. Kidneys: Normal. No masses or hydronephrosis. Peritoneal Cavity/Bowel: Moderate stool seen in the rectal vault. Appendix not conclusively seen. Pelvic Organs: Normal. The bladder and visualized pelvic organs are within normal limits. Vasculature: Calcified atherosclerotic changes seen. No evidence of aneurysm present. Bones: Moderate multilevel osteoarthritic changes seen in the lumbar spine. Other: There is a fat-containing left inguinal hernia. IMPRESSION: 1. Atelectatic changes at the lung bases, with a moderate size hiatal hernia. 2. Mild distention of the gallbladder without evidence of stones. 3. Moderate stool burden seen in the rectal vault. 4. Moderate bony degenerative changes seen. 5. Fat-containing left inguinal hernia. [facility] Referring Provider Line: [phone] SITE ID: [id number]
[2016-09-05] MEDS ORDERED: ZINC OXIDE 20% OINT 28.35 GM TUBE TOP ONE (18:42)
[2016-09-05] MEDS: QUEtiapine 25 MG TABLET PO SCH (20:50)
[2016-09-05] MEDS: DONEPEZIL 5 MG TABLET PO SCH (20:51)
[2016-09-06] MEDS: SODIUM CHLORIDE FLUSH 0.9% 10 ML SYRINGE IVP SCH ×2 (06:18→08:40)
[2016-09-06] MEDS: PANTOPRAZOLE 40 MG TABLET PO SCH (06:19)
[2016-09-06 07:47] VITALS: BP 106/70
[2016-09-06] MEDS ORDERED: DEXAMETHASONE 4 MG/ML VIAL IVP ONE (08:00)
[2016-09-06] MEDS: POLYETHYLENE GLYCOL 3350 17 GM PACKET PO SCH (08:30)
[2016-09-06] MEDS: FERROUS SULFATE 325 MG TABLET PO SCH (09:40)
[2016-09-06] MEDS: levETIRAcetam 100 MG/ML 473ML BOTTLE PO SCH (09:40)
[2016-09-06] MEDS: MULTIVITAMIN W/MINERALS TABLET PO SCH (09:40)
[2016-09-06] MEDS: POTASSIUM CHLORIDE 20 MEQ TABLET PO SCH (09:41)
[2016-09-06] MEDS: FOLIC ACID 1 MG TABLET PO SCH (09:41)
[2016-09-06] MEDS: MEMANTINE 5 MG TABLET PO SCH (09:41)
[2016-09-06] MEDS: TAMSULOSIN 0.4 MG CAPSULE PO SCH (09:41)
[2016-09-06] MEDS: LISINOPRIL 5 MG TABLET PO SCH (09:41)
[2016-09-06] MEDS: CHOLECALCIFEROL 5,000 UNIT CAPSULE PO SCH (09:41)
[2016-09-06] MEDS: THIAMINE 100 MG TABLET PO SCH (09:41)
--- NOTE | 2016-09-06 10:21 | Discharge Plan ---
Discharge Plan Disposition: 03 SNF DC/Xfer Condition: Stable Prescriptions: Tamsulosin [Flomax] 0.8 mg PO BID #60 capsule levETIRAcetam [Keppra] 500 mg PO BID #60 bottle Memantine [Namenda] 5 mg PO BID #60 tablet QUEtiapine [SEROquel] 25 mg PO QPM #30 tablet Multivitamin W/Minerals [Theragran M] 1 tab PO DAILYWM #30 tablet Cholecalciferol [Vitamin D3] 5,000 units PO BID #60 capsule Lisinopril [Zestril] 10 mg PO DAILY #30 tablet Diet: Cardiac Activity Restrictions: Activity as Tolerated Shower Restrictions: No Driving Restrictions: No Assistance Devices: Wheelchair, Walker Weight Bearing: Full Weight Instruction Topics: Dementia Patients Safety Tips, Dementia Patients Caregiver , Dementia Coping Tips Caregiver, Alzheimer Disease Additional Instructions or Follow Up instructions: See attached plan for care home care at [facility] No Smoking: If you smoke, Please STOP! Call for help.
--- NOTE | 2016-09-08 06:46 | DISCHARGE SUMMARY ---
DATE OF ADMISSION: 08/31/2016 DATE OF DISCHARGE: 09/06/2016 PRIMARY CARE PROVIDER: Dr. Durbin and Dr. Downs. ADMITTING DIAGNOSES 1. Acute urinary retention secondary to acute encephalopathy, metabolic. 2. Acute kidney injury. DISCHARGE DIAGNOSES 1. Acute kidney injury with acute urinary retention with chronic BPH. 2. Acute on chronic cerebral amyloid angiopathy with hypoactive delirium and chronic dementia, unspecified. 3. Benign prostate hypertrophy, chronic. 4. Hypertensive heart disease without congestive heart failure. 5. Gastroesophageal reflux disease. CONSULTATIONS: PT and OT. PROCEDURES 1. Brain MRI. Impression shows no significant intracranial pathology, no evidence of infarct. Age-appropriate senescent change. Mild to moderate amount of white matter disease identified in the supratentorial brain. Findings are relatively nonspecific; however, most likely represent chronic microangiopathy. Superficial siderosis overlying the posterior cerebral convexities consistent with the sequela of prior subarachnoid hemorrhages. Etiology of the previous hemorrhage is unclear. Small, rounded focus of magnetic susceptibility artifact in the left occipital lobe that probably represents hemosiderin from previous parenchymal microhemorrhages. Differential diagnosis considerations for the subarachnoid and parenchymal hemorrhages would include amyloid angiopathy. 2. Neck MRI. Impression shows severe focal stenosis in the V4 segment of the left vertebral artery near the junction between the mid and distal thirds. 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 3. Abdominal/pelvis CT. Impression shows atelectatic change at the lung base, with a moderate-sized hiatal hernia. Mild distention of the gallbladder, without evidence of stones. Moderate stool burden seen in the rectal vault. Moderate bony degenerative changes, and fat-containing left inguinal hernia. 4. Bladder ultrasound. Impression shows no evident bladder mass seen. King catheter balloon no significant postvoid residual following unclamping of King catheter. HOSPITAL COURSE AND TREATMENT: The gentleman is a 76-year-old pleasant male who was admitted to the hospital for significant urinary retention with a chronic history of BPH. He is a resident at [facility] with a longstanding history of dementia, unspecified. The patient is retired from the and has been a resident for 3-1/2 weeks at the dementia unit of [facility] in [place]. He had significant agitated dementia up until that point and had not been able to be at home with his taking care of him. He was placed on Namenda, donepezil, and Seroquel at the time of placement at [facility]. The patient has had significant signs of aggression and delirium. The patient did have a CT of the head and workup for infection while in the ER, but no significant findings were taken. This was done on the prior to coming back on the . They gave him Ativan at the [facility] and the patient became more delirious and altered, so he came back to the ER on the . The patient was evaluated in the ER by hospitalist team and he was found to be with new cognitive deficits and agitation and delirium, so he was admitted for further evaluation. stated that he had been having hallucinations, had been hitting people, and on occasion was using his cane to push her away. She stated that his aggressive tendency had been progressing. He was also found to have significant urinary retention and abdominal distention while in the ER, with a urinary volume greater than 1500. A King catheter was placed immediately. He had an elevated BUN and creatinine 4 days prior to coming to the ER, and on 08/31/2016 at the time of admission this time, he was found to have a BUN of 83 and a creatinine 3.6. He had been taking anticholinergic in the form of oxybutynin 3 times a day 5 mg tablets; however, had not been taken off that medicine. The patient was also on Flomax at that time. The patient was subsequently admitted for acute kidney injury, BPH with and urinary retention, acute delirium, and ongoing worsening dementia and agitation. MRI was performed after admission to further evaluate the patient's mental status. It was suggested on MRI that he had worsening vascular dementia with possible amyloid angiopathy. With the potential for seizures happening, and the patient showing significant signs of postictal and incontinence of urine and stool along with bilateral shaking and tremors, the patient was put on Keppra 500 mg p.o. b.i.d. Discussion with neurology, Dr. Story at [facility] encouraged use of Keppra to see if this would help the tremors and the agitated state. After 24 hours, the patient did become less restless, and tremors did improve. The patient will still need an outpatient EEG and followup with Neurology. The patient was still somnolent and lethargic; however, was receiving Seroquel and Namenda and Aricept. Seroquel p.r.n. was discontinued. The patient did continue on both Namenda and Aricept and 25 mg at night Seroquel. Physical and Occupational Therapy worked with the patient to get him up and ambulatory out of the bed. The patient still continued to have somnolence; however, did recognize family around him, and was up and ambulatory when possible. The patient did continue on melatonin at night at bedtime to help him sleep. He continued on Dulcolax, Colace to help with stooling, and was started on a vitamin D supplement along with B12 injection, since his B12 was on the low end of normal. He was continued on Prilosec/Protonix for his acid reflux, and continued on Flomax, which was increased to 0.8 for urinary retention, BPH. Risperdal was held due to continued somnolence with lethargy. The patient was not given any more lorazepam. Since the patient would need skilled care and further evaluation by Urology and Nephrology, it was agreed upon between Case Management and Social Work and the patient's spouse that he would be best served in a senior living care facility for rehabilitative services and outpatient followup. The patient was to be transferred to [facility] for additional physical and occupational therapy due to deconditioning. He will also have outpatient treatment and followup with Neurology and Urology. The patient was to be discharged home with a King after a trial urination was done with the removal of the King 1 day prior to discharge. On the night before discharge, he failed and still retained greater than 700 mL of urine. King was then re-placed and the patient to be discharged to senior living facility with it. The patient's was at bedside for the majority of inpatient treatment. She verbally understood the instructions that were given to her. The patient was started on Keppra and also given a dose of dexamethasone x2 for additional inflammation possibly in the brain due to the cerebral amyloid angiopathy. CRP was evaluated and found to be greater than 10. On the day of discharge, his vital signs were within normal limits. The patient had been up, ambulatory in the room and to the bathroom and partially in the hallway. He continued to show improvement, tremors have improved; however, still continues to be somnolent with specific episodes to where he is more alert and cognitively aware. The patient will need to be followed closely in skilled care facility with continuation of physical and occupational therapy daily. MEDICATIONS At TIME OF DISCHARGE 1. Aricept. 2. Aspirin. 3. Bisacodyl. 4. Folic acid. 5. Melatonin. 6. Memantine. 7. MiraLax. 8. Oxybutynin. 9. Prilosec. 10. Flomax. 11. Keppra. 12. Namenda. 13. Seroquel. 14. Theragran multivitamin. 15. Vitamin D3. 16. Zestril. PHYSICAL EXAMINATION: CONSTITUTIONAL: The patient is alert, disoriented x3. EYES: Pupils were equal and reactive. NECK: Supple. No thyromegaly. ENT: Nares are patent, no nasal discharge. The oropharynx has no masses or exudate. RESPIRATORY: Breath sounds are clear bilaterally to auscultation and percussion , no retractions or nasal flaring. CARDIOVASCULAR: S1, S2 noted. No gallops, murmurs or rubs. Normal PMI. No JVD. GASTROINTESTINAL: Abdomen is distended, but soft, nontender. Bowel sounds are present. No guarding or rebound noted. MUSCULOSKELETAL: The patient has full range of motion with upper and lower extremities, but passive. No cyanosis. Pulses are palpable. No edema to bilateral lower extremities. SKIN: Warm, dry, intact. Normal turgor. No evidence of rash, lesions, or cellulitis. HEMATOLOGIC: No active bleeding. The patient is hemodynamically stable. LYMPHATICS: No cervical, axillary, supraclavicular lymphadenopathy is noted. NEUROLOGIC: The patient is alert. GCS 15. Cranial nerves unable to be assessed due to patient's lethargy and somnolence. Sensory unable to be assessed. PSYCHIATRIC: Flat affect, nonverbal at the time of assessment. INSTRUCTIONS FOR DISCHARGE AND FOLLOWUP 1. Activity to be as tolerated. The patient is to continue activities of normal daily living as much as is tolerable. Please continue to encourage ambulation with patient throughout the day. Take frequent rest breaks and 7 to 8 hours of sleep at night. 2. Diet: Please continue to eat a cardiac/heart healthy diet, low fat. Will need to drink 8-9 tall glasses of water daily. Avoid sodas, and limit caffeine. 3. Followup: The patient will need to follow up with neurology, Dr. Zimmerman or Dr. Logan with [facility]. It is critical that he receive an EEG and be further evaluated for worsening dementia. Dementia may be related to vascular changes or lifestyle changes. The patient will also need to be seen by Urology. He will have a King in place due to urinary retention. Ultrasound did not show a blockage or hydronephrosis. 4. The patient was instructed to continue all home medications prescribed. He was given multiple prescriptions for supplements as well as for Keppra for possible new onset of seizure activity, given the fact that he probably has cerebral amyloid angiopathy. The patient was also given 2 doses of steroids while inpatient. On the day of discharge, vital signs were stable. He was to be transferred to a senior living facility in [place]. All paperwork was completed for transfer. He is to be transferred in a BLS unit with to follow. Prescriptions were given to family and discharge instructions given to family at the time of discharge from [facility]. The patient's vital signs were stable, with temperature at 36.8, heart rate 73, blood pressure 106/70, respirations 16 , and pulse oximetry 94% on room air. The patient was to remain a DNR/DNI code. Time spent on discharge instructions for education and evaluation was 50 minutes. JOB #: [id number] EXT JOB #:[id number] YANN
== END 2016-09-06 14:10 | DRG 682 ==
LOC: EDUNIT# → ED 09:45 → MS 14:04
PROVIDERS: ADMIT Nurse Practitioner; ATTEND Nurse Practitioner
DX: N17.9 Acute kidney failure, unspecified (principal); R33.9 Retention of urine, unspecified; G93.41 Metabolic encephalopathy; F03.90 Unspecified dementia, unspecified severity, without behavioral disturbance, psychotic disturbance, mood disturbance, and anxiety; F02.81 Dementia in other diseases classified elsewhere, unspecified severity, with behavioral disturbance; E85.4 Organ-limited amyloidosis; R10.9 Unspecified abdominal pain; K21.9 Gastro-esophageal reflux disease without esophagitis; N40.1 Benign prostatic hyperplasia with lower urinary tract symptoms; R33.8 Other retention of urine; R25.1 Tremor, unspecified; Z66 Do not resuscitate; Z79.82 Long term (current) use of aspirin; Z87.891 Personal history of nicotine dependence; R31.0 Gross hematuria; D50.9 Iron deficiency anemia, unspecified; I11.9 Hypertensive heart disease without heart failure; G31.83 Neurocognitive disorder with Lewy bodies; I68.0 Cerebral amyloid angiopathy; E87.6 Hypokalemia; E83.42 Hypomagnesemia
CPT/HCPCS: 36415; 51700; 51701; 51702; 70544; 70549; 70551; 74176; 76775; 76857; 80048; 80053; 81001; 81003; 82140; 82553; 82607; 83036; 83540; 83690; 83735; 84100; 84466; 85025; 85610; 86140; 87086; 96360; 99284; 99285

== ENCOUNTER 2016-09-06 14:19 | Outpatient (CLI) | payer MEDICARE, OTHER | END 2016-09-06 14:20 | DX: E85.4 Organ-limited amyloidosis (principal); N40.1 Benign prostatic hyperplasia with lower urinary tract symptoms; G30.9 Alzheimer's disease, unspecified; F02.80 Dementia in other diseases classified elsewhere, unspecified severity, without behavioral disturbance, psychotic disturbance, mood disturbance, and anxiety | CPT/HCPCS: A0425; A0428 ==

== ENCOUNTER 2016-12-25 10:15 | Outpatient (CLI) | payer MEDICARE, OTHER ==
--- NOTE | 2016-12-25 12:55 | CONSULTATION NOTE ---
Palliative Care Consultation - Referral Referring Provider: Dr Lisbeth Martinez Time of Visit: 10:15 Referral setting: Home - Information Sources History obtained from: Family Exam limitations: Clinical condition (Advanced dementia, unrousable from sleep) - History of Present Illness Brief History of Present Illness: Thank you, Dr. Martinez, for asking the palliative care consult service to be involved in the care of your patient. 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 He would benefit from Home Physical Therapy for evaluation and treatment to increase his strength for transferring. A wheelchair evaluation would also be beneficial. He chokes and coughs when he drinks liquids, a risk for aspiration pneumonia, and so would benefit from a swallow evaluation by the speech language therapist. This is a 76-year-old gentleman with combination Alzheimers and Lewy body dementia who was admitted to hospice on 09/17/16. He had been living with his spouse until he became agitated with combative behavior. He was hospitalized twice in a short space of time and subsequently placed in [facility] for rehab for a short period but discharged because they are not equipped to care for dementia patients. He transferred to [facility] memory care and was admitted to Hospice care. At [facility] they administered 2mg of Lorazepam instead of 0.5mg and he became minimally responsive. 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 He was eventually discharged from Hospice, and he came home from [facility] 12/10/16. His colleagues continue to come to the house and walk with him At home his is is sole caregiver. He has been participating 3 days a week in the Time Together program offered through the [facility]. She just learned that they had to discharge him because he requires 1:1 attention, which is something they arent equipped to support. She is in the process of engaging paid caregivers to help as much as possible during the week. She is feeling overwhelmed with the amount of care that her requires. She does not qualify for subsidized caregiving help or [facility]. She has spoken with social workers in the past but has not found that useful. Friends come over to help. Showering is especially challenging; the patient has had only two showers since leaving [facility]. Her son gave him one shower and she gave him the other, but she says she cant do it on her own. He is off of most medications now. He continues on Seroquel, Miralax, and 650mg of Tylenol daily. His has not displaced aggressive behaviors recently. He was on a King catheter until the end of October, and she reports he is not having urinary retention; he is incontinent of bowel and bladder. He eats well at home ; she said he lost 30 lbs at [facility], but is probably regaining some of that at home, since he is eating cookies and other sweets. He is very fit looking, although his arms are thin and deconditioned. He has tremors of unknown etiology in all extremities. She has a neurology follow up appointment scheduled at the end of this month, but is undecided whether she will go because of his transferring/transport difficulties. She does not think the tremors affect his current quality of life, and questions what difference it will make. She currently manages it by massaging his feet and hands and doing trigger point work. It does not appear to be adversely affecting his quality of life. Information obtained from and EMR chart notes. Medical/Surgical History - Past Medical History Cardiovascular: reports: None (His denies HTN, high cholesterol, coronary artery disease.) Respiratory: reports: None Neuro: reports: Alzhiemer's, Dementia, Tremors (all extremities. Of unknown etiology), Other (Mixed Alzheimer's and Lewy body dementia.) GI: reports: GERD : reports: Retention (Hospitalized August 2016 for urinary retention), Incontinence HEENT: reports: Chronic hearing loss Musculoskeletal: reports: Osteoarthritis MRSA Hx?: No - Past Surgical History General: reports: Colonoscopy Social History - Living Situation Living arrangement: At home Living Situation: With spouse/s.o. Support System: Both children live in the area. Son lives in [place] and works in [place]. Daughter and granddaughter both live in [place]. He also has his friends/ colleagues from the who come exercise with him, supporting him while walking. Medications/Allergies - Medications Home Medications: Ambulatory Orders Medication Instructions Recorded Confirmed Polyethylene Glycol 3350 [Miralax] 17 gm PO DAILY 08/31/16 12/25/16 Acetaminophen [Tylenol] 650 mg PO Q8H PRN 12/25/16 12/25/16 QUEtiapine [SEROquel] 25 mg PO BID 12/25/16 12/25/16 - Allergies Allergies/Adverse Reactions: Allergies Allergy/AdvReac Type Severity Reaction Status Date / Time No Known Drug Allergies Allergy Verified 02/08/14 10:32 Review of Systems - Constitutional Constitutional: reports: Other (Excessive sleeping.) - Other Findings Other Findings: Unable to obtain ROS from patient due to advanced dementia and he was sleeping and not rousable. Physical Examination - Vital Signs Temperature: 97.4 C Pulse Rate: 65 O2 Saturation: 99 Blood Pressure: 112/72 - Physical Exam General Appearance: positive: Lethargic (sleeping, non-rousable) Eyes Bilateral: positive: No lid inflammation Neck: positive: Trachea midline Respiratory: positive: No respiratory distress Cardiovascular: positive: Regular rate & rhythm Abdomen: positive: Non-tender, No organomegaly, Nml bowel sounds, No distention Skin: positive: No symptoms Extremities: positive: Nml appearance, No pedal edema Palliative Care - POLST Patient has POLST: Yes POLST Status: DNR, Comfort Measures Pain: Pain unchanged, Comment (The only sign of pain he makes is grimacing in the morning when he gets out of bed. She gives him 650mg Tylenol daily, which seems to help.) Drowsiness: Moderate (4-6) Nausea: None Dyspnea: None Anorexia: None Insomnia: Sleeps well, Other (Sleeps majority of time, about 18 hours/day. Sleeps from 6-7pm to 9am, then again from 10am-to 2pm or so, then to bed again in evening.) Constipation: No Feelings of wellbeing/Perceived Quality of Life: Improved (Improved since urinary retention episode in August 2016 and also since he discharged from [facility] and is living back at home.) Performance Status: Current level of functioning: No current aggressive behaviors. Requires extensive assistance with all ADLs; unable to transfer self from bed or chair; able to ambulate only with assistance, otherwise spends his time strapped in to wheelchair or on his self-lift recliner. He cannot self transfer and this means she cannot transport him to appointments without considerable cost and time. Once he is up and standing, he has been able to ambulate considerable time, with the support of his colleagues who come to the house to help out. He verbalizes but is largely unintelligible; however, his narratives do make some sense since his friends are able to decipher what he is saying and generally follow the story. The patient uses teething ring for amusement and likes to put things in his mouth. He also likes working with [employer] [place] dolls, and tying knots on a rope. Unfortunately the patient is no longer enrolled from the Time Together senior program at the [facility] because he requires 1:1 attention and they are not set up for that. This was a very distressing setback for his , as he gained a lot from this program, and it gave her a reprieve and much needed rest three times per week. Palliative Care Performance Status: 50% - Palliative Care Discussion: Who is present: The patient (he slept and was not rousable during this visit), his , a woman friend, and myself Surrogate decision maker: /DPOA Maru Ortiz. Home [phone]. . Consent for leaving messages: Son: Danny Ortiz. Home [phone]. Daughter: Cassidy Ortiz. . Granddaughter: Mer Ortiz. Home [phone]. . Patient/Family understanding of the illness: Patient has no insight or understanding of his situation due to his advanced, mixed dementia. His does have insight and understanding of the seriousness of patients current condition, and understands his decline will ultimately be fatal. Most important goals: Maintaining the patients comfort and not prolonging his life unnecessarily. Hospitalization and antibiotics only as it maintains his comfort. Maintaining his physical independence by maintaining his strength and mobility for as long as possible. Getting necessary caretaking support for his . Patient/family concerns: His would like to have Home Health physical therapy to increase his ability to transfer from bed and wheelchair. Right now she is unable to transport him because of the transfer issues. His a very strong man and kept himself in superb physical condition throughout his life and that is why he still has very good stamina today. Her other concern is getting help with showering since she is unable to do it herself. Impression and Recommendations - Palliative Care Impression: This is a 76-year-old gentleman with quite advanced end-stage Alzheimers and Lewy body dementia, with a h/o aggressive behaviors secondary to urinary retention. He has tremors of unknown etiology, and requires assistance with transfers and is at risk high risk for sequelae of falls. His is currently the sole halal butcher, and is at risk of burnout. She is fortunately in the process of hiring caregiving help. He is not currently appropriate for hospice but would benefit from HH PT and ALUMNI COORDINATOR. Recommendations/Counseling Done: 1. Dementia, mixed (Alzheimers, Lewy body) with h/o behaviors: Quite advanced. Behaviors currently controlled with Seroquel 25mg bid. Slow, steady decline. 2. Lower extremity weakness: Able to ambulate only with assistance, unable to self transfer. Recommend HH PT evaluation and treatment to restore LE strength and increase ability to transfer. 3. Constipation: Managed with Miralax 17g daily. 4. Pain: Likely osteoarthritis. Managed with daily Tylenol 650mg each morning. Otherwise his reports no signs of pain. 5. Tremors, upper and lower extremities: Of unknown etiology. Neurology appointment scheduled for later this month. Spouse is undecided about keeping it due to transport/transferring difficulties. Massaging and trigger point work by family members appear to be working adequately so that it is not adversely affecting his quality of life. 6. Dysphagia: Recommend ALUMNI COORDINATOR evaluation for dysphagia due to risk of aspiration pneumonia. He coughs with drinking, not with eating: recommend thickening his fluids with OTC thickeners. Time Spent: 75 minutes with greater than 50% of this done in counseling regarding his dementia and needs, coordination of care, covering goals of care, and providing anticipatory guidance.
== END 2016-12-25 10:16 | disposition home or self-care (01) ==
LOC: PC 10:15
PROVIDERS: ATTEND Nurse Practitioner
DX: Z51.5 Encounter for palliative care (principal); F03.91 Unspecified dementia, unspecified severity, with behavioral disturbance; M62.81 Muscle weakness (generalized); R52 Pain, unspecified; K59.00 Constipation, unspecified; R25.1 Tremor, unspecified; R13.10 Dysphagia, unspecified; Z99.3 Dependence on wheelchair; Z66 Do not resuscitate; R15.9 Full incontinence of feces; R32 Unspecified urinary incontinence; K21.9 Gastro-esophageal reflux disease without esophagitis; H91.90 Unspecified hearing loss, unspecified ear; R40.0 Somnolence
CPT/HCPCS: 99345

== ENCOUNTER 2016-12-31 15:25 | Outpatient (CLI) | payer MEDICARE, OTHER ==
--- NOTE | 2016-12-31 21:27 | CONSULTATION NOTE ---
Palliative Care Follow Up - Referral Referring Provider: Dr Lisbeth Martinez Referral setting: Home (Seen in home setting due to taxing and considerable effort required to leave the home due to being wheelchair bound from advanced mixed dementia.) - Information Sources History obtained from: Family, Caregiver Exam limitations: Clinical condition (Advanced dementia) - History of Present Illness Update Brief HPI Update: [id number] for wheelchair: Due to lower extremity weakness as a result of advanced combined dementia ( Alzheimers and Lewy body) patient is completely non-ambulatory inside the home as well as outside of the home due to increasing decline since my previous visit. As a result of non-ambulatory status, patient is therefore unable to accomplish all mobility-related aids to daily living activities, such as, toileting, feeding, bathing and grooming without the assistance of a wheelchair due to lower extremity weakness. Due to the effects of lower extremity weakness , patient is completely incapable of using a cane or walker inside the home. Patient will be reliant upon a wheelchair to accomplish all mobility-related aids to daily living in the home such as toileting, feeding, bathing, and grooming. Patient has not expressed an unwillingness to use the wheelchair. Patient does not have sufficient upper extremity function to safely propel a wheelchair but has caregiver assistance able to assist with the wheelchair propulsion. The use of a wheelchair will significantly improve patients ability to successfully participate in his MRADLs (grooming, bathing, feeding and toileting) and as a result, patients functional mobility deficits will be resolved. This is a 76-year-old gentleman with combination Alzheimers and Lewy body dementia with behavioral issues. He was on Hospice from 09/17/16 to 12/10/16, discharged from Hospice because his wanted him to have physical therapy, which was an arrangement with his former bomb disposal colleagues in the [employer] to take turns visiting him and supportively walking him around the facility and later at home. His has recently engaged a new caregiver, who comes with her daughter, and the caregiver reported an open wound on his buttock, and they requested I come evaluate it. It is a stage II pressure ulcer approximately 4cm square on right buttock, no sign of infection. It appears to be a shearing wound from sitting slouched and sliding. He does sit in his wheelchair or in the recliner. I cleaned the wound with sterile water and non-rinse soap and changed the dressing to an absorbent/protective dressing. I consulted with the palliative care conference center manager on provenance of the wound and appropriate protection and prevention, and recommended a gel wheelchair cushion, for both bottom and back, with rigidizer, and provided education to the validation specialist about avoiding shearing. He will require ongoing wound care and oversight. Patient's was not present for this visit. Patient also has discoloration of the skin on his R hip joint. Information obtained from validation specialist and EMR chart notes. Social History - Living Situation Living arrangement: At home Living Situation: With spouse/s.o. Support System: His has just hired caregivers to come several times per week. Medications/Allergies - Medications Home Medications: Ambulatory Orders Medication Instructions Recorded Confirmed Polyethylene Glycol 3350 [Miralax] 17 gm PO DAILY 08/31/16 12/25/16 Acetaminophen [Tylenol] 650 mg PO Q8H PRN 12/25/16 12/25/16 QUEtiapine [SEROquel] 25 mg PO BID 12/25/16 12/25/16 - Allergies Allergies/Adverse Reactions: Allergies Allergy/AdvReac Type Severity Reaction Status Date / Time No Known Drug Allergies Allergy Verified 02/08/14 10:32 Review of Systems - Constitutional Constitutional: reports: Fatigue (sleeps excessively), Weakness. denies: Poor appetite - Gastrointestinal Gastrointestinal: denies: Constipation, Change in bowel habits - Neurological Neurological: reports: General weakness, Other (upper extremity tremors of unknown etiology) - Psychiatric Psychiatric: reports: Other (h/o aggressive behaviors related to urinary retention/infection) - Other Findings Other Findings: Unable to obtain due to advanced mixed dementia. Physical Examination - Vital Signs Temperature: 98.6 F Pulse Rate: 73 O2 Saturation: 98 Blood Pressure: 120/60 - Physical Exam General Appearance: positive: Mild distress (while assessing and changing dressing of buttock pressure wound) Eyes Bilateral: positive: No lid inflammation, Conjunctivae nml, No scleral icterus Neck: positive: Trachea midline Respiratory: positive: No respiratory distress, Breath sounds nml Abdomen: positive: No distention Skin: positive: Other (Stage II pressure wound on R buttock, approx 4cm x 4cm, without signs of infection) Extremities: positive: Nml appearance, No pedal edema Neurologic/Psychiatric: positive: Disoriented to person, Disoriented to place, Disoriented to time, Weakness, Other (unintelligible speech using very few words ) Palliative Care - POLST Patient has POLST: Yes POLST Status: DNR, Comfort Measures Pain: No pain, Pain unchanged Drowsiness: Moderate (4-6) Nausea: None Anxiety: Mild (1-3) (Only while assessing and treating his pressure wound) Anorexia: None Insomnia: Other (Sleeps excessively) Constipation: No (using Miralax) Performance Status: Current level of functioning: Requires extensive assistance with all ADLs, transfers, and ambulation. He is no longer able to walk with his service friends. No current aggressive behaviors. Palliative Care Performance Status: 40% - Palliative Care Discussion: Surrogate decision maker: /DPOA Maru Ortiz. Home [phone]. . Consent for leaving messages: Son: Marko Ortiz. Home [phone]. Daughter: Cassidy Ortiz. . Granddaughter: Mer Ortiz. Home [phone]. . Most important goals: wants to keep home as long as possible and as comfortable as possible. She was not present for todays assessment and I did not have the opportunity to review goals of care. She did say over the phone that she hoped he would not be transitioning to Hospice soon, so we will need to further explore her understanding and perceptions of Hospice. Patient/family concerns: Assist the family in obtaining a wheelchair through Medicare and also a gel wheelchair cushion with rigidizer. I had previously referred him to Home Health for PT and DEPUTY DIRECTOR OF FINANCE, and am now adding a request for wound care. HH admission is scheduled to take place next week. Impression and Recommendations - Palliative Care Impression: This is 76-year-old gentleman with advanced end-stage mixed Alzheimer's and Lewy body dementia, with a h/o aggressive behavior secondary to urinary retention. He has compromised skin on his R buttock, mostly likely resulting from prolonged sitting without proper protection from shearing. He would benefit from a more appropriate wheelchair and gel wheelchair cushions, for bottom and back, with rigizider. He will also benefit from Home Health services for wound care, PT, showering aid, speech evaluation for dysphagia. Recommendations/Counseling Done: 1. Dementia, mixed (Alzheimers, Lewy body) with h/o behaviors: Continued decline and weakness, he is walking and standing less, no longer walking with buddies. PT evaluation and treatment scheduled for next week. Continue Seroquel 25mg bid for behaviors. 2. Stage II pressure ulcer, R buttocks: Referred to Home Health for wound care , admission scheduled for 01/05. Provided wound care, products, counseling and education on avoiding shearing, e.g., raising foot of hospital bed prior to raising head of bed to prevent his body from sliding down the bed. Coordinate with family in obtaining gel wheelchair cushion, bottom and back, educated that they should also be used in his recliner. Facilitate obtaining a wheelchair through Medicare. 3. Dysphagia: DEPUTY DIRECTOR OF FINANCE evaluation scheduled for next week. Time Spent: 45 minutes with greater than 50% of this done in coordination of and education on wound care and wound prevention, obtaining an appropriate wheelchair and protective equipment for pressure ulcers, and providing anticipatory guidance.
== END 2016-12-31 15:26 | disposition home or self-care (01) ==
LOC: PC 15:25
PROVIDERS: ATTEND Nurse Practitioner
DX: Z51.5 Encounter for palliative care (principal); G30.9 Alzheimer's disease, unspecified; G31.83 Neurocognitive disorder with Lewy bodies; F02.81 Dementia in other diseases classified elsewhere, unspecified severity, with behavioral disturbance; L89.312 Pressure ulcer of right buttock, stage 2; R13.10 Dysphagia, unspecified; Z99.3 Dependence on wheelchair; R53.1 Weakness; R53.83 Other fatigue; Z66 Do not resuscitate
CPT/HCPCS: 99349

== ENCOUNTER 2017-01-05 08:00 | Outpatient (CLI) | payer MEDICARE, OTHER | END 2017-01-05 08:01 | disposition home or self-care (01) | LOC: LAB.R 08:00 | PROVIDERS: ATTEND Family Medicine | DX: L08.9 Local infection of the skin and subcutaneous tissue, unspecified (principal) | CPT/HCPCS: 87070; 87077; 87205 ==

== ENCOUNTER 2017-01-08 10:30 | Outpatient (CLI) | payer MEDICARE, OTHER ==
--- NOTE | 2017-01-08 13:07 | CONSULTATION NOTE ---
Palliative Care Follow Up - Referral Referring Provider: Dr. Lisbeth Martinez Time of Visit: 10:30 Referral setting: Home (Seen in home setting due to taxing and considerable effort required to leave the home due to being wheelchair-bound from advanced mixed dementia.) - Information Sources Records reviewed: Previous records reviewed History/Review of Systems obtained from: Family Exam limitations: Clinical condition (Alzheimer's and Lewy body dementia.) - History of Present Illness Update Brief HPI Update: Face to face for an AP mattress: Due to lower extremity weakness, and failure to thrive as a result of combined Alzheimer's and Lewy body dementia, patient is completely immobile in bed and requires an AP mattress to promote healthy skin integrity as well as reduce occurrence of decubitus ulcers while in bed. 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 He was on hospice from 09/17/2016 to 12/10/2016 , discharged from hospice because his wanted him to have "physical therapy, " which was an arrangement with his former colleagues in the bomb disposal unit of the [employer] to take turns visiting him and supporting walking him around the facility and later at home. Patient has experienced a steady, slow decline in functionality and increasing weakness. He has no longer able to ambulate outside and any ambulation with walker requires assistance. He is also spending more time in his wheelchair. He sleeps anywhere from 18-19 hours per day, However, recently his wasn't able to give him Seroquel and she noticed an increase in his alertness. Patient' s aggressive behaviors are very stable and have not recurred recently. She has requested a downward titration of Seroquel and we are trialing this to see if it increases his alertness and wakefulness without affecting behavior. Home Health physical therapy has commenced this week, with the goal of improving transfers and mobility. The new explosive man appears to be working out very well, helping maintain the patient's quality of life, as well as the 's. She often works in tandem with her daughter. The patient is eating well despite his weight being down to 139 pounds. He tends to eat breakfast and dinner but not lunch since he sleeps throughout the day. Home health nursing is mangaging the pressure wound on his right buttocks, and the order for a new wheelchair with gel cushions is in process. I will also be requesting an AP mattress to alleviate pressure and risk of shearing and pressure ulcers. The notes that patient's tremors have improved recently. She has canceled a recent neurologist appointment because of considerable and taxing effort required to transfer and transport the patient to appointments at the clinic. At this point she does not have plans to reschedule the appointment. Social History - Living Situation Living arrangement: At home Living Situation: With spouse/s.o., With caregiver(s) Support System: He and his have lived in their [place] many decades and have a strong social and familial support system. Medications/Allergies - Medications Home Medications: Ambulatory Orders Medication Instructions Recorded Confirmed Polyethylene Glycol 3350 [Miralax] 17 gm PO DAILY 08/31/16 12/25/16 Acetaminophen [Tylenol] 650 mg PO Q8H PRN 12/25/16 12/25/16 QUEtiapine [SEROquel] 25 mg PO QPM 12/25/16 12/25/16 Senna [Senokot] 17.2 mg PO DAILY 01/08/17 01/08/17 - Allergies Allergies/Adverse Reactions: Allergies Allergy/AdvReac Type Severity Reaction Status Date / Time No Known Drug Allergies Allergy Verified 02/08/14 10:32 Review of Systems - Constitutional Constitutional: reports: Fatigue, Weakness, Weight loss - Ears, Nose & Throat Ears, Nose & Throat: reports: Hearing loss - Respiratory Respiratory: reports: Cough (with drinking) - Other Findings Other Findings: Unable to obtain due to dementia. Partial ROS supplied by . Physical Exam - Vital Signs Temperature: 97.6 F Pulse Rate: 103 O2 Saturation: 95 Blood Pressure: 110/70 - Physical Exam General Appearance: positive: No acute distress, Lethargic Eyes Bilateral: positive: No lid inflammation, Conjunctivae nml, No scleral icterus ENT: positive: No signs of dehydration Neck: positive: Nml inspection, No JVD, Trachea midline Cardiovascular: positive: Regular rate & rhythm, No murmur Respiratory: positive: No respiratory distress, Breath sounds nml, Diminished in bases Abdomen: positive: Soft, Nml bowel sounds Skin: positive: Pressure wound (R buttocks) Extremities: positive: Nml appearance, No pedal edema Neurologic/Psychiatric: positive: Disoriented to place, Disoriented to time, Slurred/abnml speech Palliative Care - POLST Patient has POLST: Yes POLST Status: DNR, Comfort Measures Pain: Pain unchanged Tiredness/Fatigue: Moderate (4-6) Drowsiness/Sedation: Moderate (4-6) Nausea: None Depression: None Anxiety: None Dyspnea: None Sleep: Sleeps well, Other (Sleeps 18-19 hours daily) Constipation: Yes (Today is 4th day without a bowel movement. This is a new development.) Performance Status: Current level of functioning: Requires extensive assistance with all ADLs, for repositioning himself in bed, two-person transfers, and ambulation via walker with assistance. Also uses wheelchair. Progressively getting weaker, and losing weight. He is currently at 139 lbs but his base weight, back in August 2016, was 174-175 lbs. He is participating in physical therapy. Speech therapy has not commenced yet. No current aggressive behaviors. Palliative Care Performance Status: 50% - Palliative Care Discussion: Who is present: The patient, his spouse, and myself Surrogate decision maker: /DPOA Maru Ortiz. Home [phone]. . Consent for leaving messages: Son: Danny Ortiz. Home [phone]. Daughter: Cassidy Ortiz. . Granddaughter: Mer Ortiz. Home [phone]. . Most important goals: Patient's is consistent in wanting to maintain his quality of life and keep him as active as possible within the constrictions of his disease process. To this end she is very supportive of continuing physical therapy, and has hired high-quality caretakers in order help maintain his health and help him remain at home. Impression and Recommendations - Palliative Care Impression: A 76-year-old gentleman with advanced end-stage Alzheimers and Lewy body dementia, with a h/o behavioral issues. His stage II pressure ulcer is being managed by Home Health nursing. He continues to steadily decline, with increased weakness, declining functionality, increasing sleepiness and weight loss. He does appear comfortable, and the new caretakers are improving quality of life both for the patient and his . He continues at high risk for sequelae of falls and aspiration pneumonia from swallowing difficulties. Will continue to monitor and transition back to Hospice when appropriate. Recommendations/Counseling Done: 1. Dementia, mixed (Alzheimers, Lewy body) with h/o behaviors: Decreased seroquel dosage from 25mg bid to daily due to excessive drowsiness. Monitor for mood/behavior changes and also for improvement in drowsiness and excess sleeping, and consider further titration of seroquel. 2. Stage II pressure ulcer, R buttocks: Home Health nursing has started managing. New wheelchair and gel cushion order is in process. Also recommending an AP mattress, see HPI for details. 3. Lower extremity weakness: Continued decline. PT evaluation and treatment scheduled for next week 4. Dysphagia: PT evaluation should occur next week. 5. Failure to thrive: Still has an appetite but is well below his baseline of 174-175 lbs. His last weight was 139 lbs. He normally eats breakfast and dinner , and sleeps through lunchtime. 6. Tremors: His cancelled a neurology appointment with Dr. Олег Logan with [facility] due to the taxing and considerable effort of transferring and transporting him. She notes that tremors have improved. Time Spent: 30 minutes with greater than 50% of this done in counseling and coordination of care obtaining pressure reducing mattress, reviewing goals of care and providing anticipatory guidance.
== END 2017-01-08 10:31 | disposition home or self-care (01) ==
LOC: PC 10:30
PROVIDERS: ATTEND Nurse Practitioner
DX: Z51.5 Encounter for palliative care (principal); L89.312 Pressure ulcer of right buttock, stage 2; M62.81 Muscle weakness (generalized); R13.10 Dysphagia, unspecified; R62.7 Adult failure to thrive; R25.1 Tremor, unspecified; R53.83 Other fatigue; R63.4 Abnormal weight loss; Z66 Do not resuscitate
CPT/HCPCS: 99348

== ENCOUNTER 2017-03-10 13:00 | Outpatient (CLI) | payer MEDICARE, OTHER ==
--- NOTE | 2017-03-10 19:57 | CONSULTATION NOTE ---
Palliative Care Follow Up - Referral Referring Provider: Dr Martinez Time of Visit: 13:00 Referral setting: Home (Seen in home setting due to taxing and considerable effort required to leave the home due to severe lower extremity weakness and near immobility secondary to advanced dementia.) - Information Sources Records reviewed: RN notes reviewed, Previous records reviewed History/Review of Systems obtained from: Patient Exam limitations: Clinical condition (Advanced dementia) - History of Present Illness Update Brief HPI Update: This is a 76-year-old gentleman with combination Alzheimer's and Lewy body dementia with a history of behavioral issues. He was on hospice from 09/17/2016-, discharged from hospice at 's request. He has been living at home with his since then. He has shown significant improvement after home health PT, OT, and wound care for numerous pressure wounds on his trunk and lower extremities. He has been discharged from therapy and home health with healed or healing wounds. His thinks the biggest difference was getting in air pressure mattress. His reports significant improvement in energy, outlook, and he has gained 9 pounds since being hospice. He weighed 149 pounds about 2 weeks ago. She reports no aggressive behaviors, and his oversedation was resolved away in Seroquel dosage was decreased to 25 mg daily. His has been very successful at getting quality caregiving and caregivers are divided into 3 shifts: 7:30 to 9:30 AM, 1:48 PM, and 3 to 6 PM. She has a large and supportive social meshwork and is able to get friends to watch her when she needs to leave. For example this weekend she is attending a caregiving conference overnight and has already arranged caregivers to cover for her. She reported the patient had an acute occurrence of swelling of left hand and left foot yesterday. She denies it was read swollen or tender. Today it seems to have resolved with no signs of redness or significant swelling on either hand or foot; however the left foot was warmer than the right foot. Neither were tender. She reports that recently he has started reading words, for instance the word "EOD" on a friend's jacket. His [employer] buddies still come and visit him on weekends. She is very grateful for the support of friends and a supportive home health and palliative care. She is very pleased with his improved health status. He sleeps well from about 6 PM to 7:30 AM, sometimes longer if she lets him sleep in. He does become fatigued, for instance, at Thanksgiving O. when there were many guests at the house. TRADE SHOW COORDINATOR visited on 02/16 and will follow up 2-3 weeks after that date. Social History - Living Situation Living arrangement: At home Living Situation: With spouse/s.o., With caregiver(s) (Spouse has engaged caregivers for 3 shifts 7 days/wk: 7:30-9:30am; 12-2pm; 3-6pm.) Support System: The children do not help with their father's care, particularly his daughter. The spouse is quite active and advocates for her needs; she is involved with Care Coordination Manager support groups and is attending a Care Coordination Manager conference this weekend in [place]. She has numerous friends who provide stand-in care giving and other forms of support. Ex-[place] lucita visit the patient every weekend. Medications/Allergies - Medications Home Medications: Ambulatory Orders Medication Instructions Recorded Confirmed Polyethylene Glycol 3350 [Miralax] 17 gm PO DAILY 08/31/16 03/10/17 Acetaminophen [Tylenol] 650 mg PO Q8H PRN 12/25/16 03/10/17 QUEtiapine [SEROquel] 25 mg PO QPM 12/25/16 03/10/17 Senna [Senokot] 8.6 mg PO DAILY PRN 01/08/17 03/10/17 Omeprazole [PriLOSEC] 20 mg PO DAILY 02/05/17 03/10/17 Acetaminophen [Tylenol] 650 mg PO DAILY 03/10/17 03/10/17 - Allergies Allergies/Adverse Reactions: Allergies Allergy/AdvReac Type Severity Reaction Status Date / Time No Known Drug Allergies Allergy Verified 02/08/14 10:32 Review of Systems - Constitutional Constitutional: reports: Weight gain (Weight increased to 149 lbs on the home scale. Last reported weight was 139 lbs. Baseline weight previously was 175 lbs.) - Gastrointestinal Gastrointestinal: reports: Good appetite. denies: Constipation, Diarrhea, Change in bowel habits, Vomiting - Genitourinary Genitourinary: reports: Incontinence. denies: Frequency - Musculoskeletal Musculoskeletal: reports: Transfer issues (requires assistance with transfers) - Integumentary Integumentary: reports: Other (healed pressure wounds, with one still in process of healing, on hip.) - Neurological Neurological: reports: General weakness, Memory problems, Abnormal gait, Other ( Has recently been able to read single words (on a friend's jacket, on a cardboard box)) - Psychiatric Psychiatric: denies: Aggitation, Behavior disturbances - Other Findings Other Findings: ROS supplied by spouse; unable to obtain from patient due to advanced dementia. Physical Exam - Vital Signs Temperature: 98.2 F Pulse Rate: 53 O2 Saturation: 95 Blood Pressure: 120/78 - Physical Exam General Appearance: positive: No acute distress, Alert Eyes Bilateral: positive: EOMI, No lid inflammation, Conjunctivae nml, No scleral icterus ENT: positive: No signs of dehydration Neck: positive: Thyroid nml, No JVD, Trachea midline Cardiovascular: positive: Regular rate & rhythm, No murmur, No gallop Respiratory: positive: Chest non-tender, Breath sounds nml Skin: positive: No symptoms, Pressure wound (most are resolved; one on hip still resolving) Extremities: positive: Non-tender, No pedal edema (minimal), Other Neurologic/Psychiatric: positive: Disoriented to person, Disoriented to place, Disoriented to time, Weakness, Flat affect, Other (tremors, very evident in UEs. reports they are in LE's too, but less evident) Palliative Care - POLST Patient has POLST: Yes POLST Status: DNR, Comfort Measures Pain: No pain Tiredness/Fatigue: Mild (1-3) Drowsiness/Sedation: None Nausea: None Depression: None Anxiety: None Dyspnea: None Anorexia: None Sleep: Sleeps well (Sleeps from 6pm-730am, sometimes later. Is up about 3 hours in the mornings then naps again) Constipation: No Performance Status: Current level of functioning: Functionality has stabilized since previous visit in January. Requires maximum assist with transfers. Is able to ambulate with walker and with support in the house. Does not leave the house. Requires extensive assistance with eating, ADLs, hygiene. Pressure wounds responded well to home health nursing. Palliative Care Performance Status: 40% - Palliative Care Discussion: Who is present: Patient, one caregiver, spouse, myself. Surrogate decision maker: Maru Ortiz, spouse. Home [phone]. Most important goals: The goal is to keep the patient comfortable and to keep him at home. is cognizant that he is doing well currently, but is always at risk of falls, infection, decline. She is grateful for the help and support she has received from friends and health care and is enjoying her 's current peacefulness and stability. He has had no aggressive behaviors, he is eating and sleeping well, and he overall looks quite well. When his [place] friends are here every week, he enjoys their company, but does get fatigued with lots of social interactions, for example, Thanksgiving dinner at the house. Family concern: noted his L hand and L foot were swollen yesterday; first time this has occurred. It appears to have resolved today. I educated her on what signs/symptoms of infection to look for and to call if there are any changes. She was also concerned that Palliative Care should continue to monitor the patient, particularly since Home Health is no longer coming. She said she is missing them; she enjoyed their cheerfulness. She is relieved to know that Palliative Care will continue to monitor him. Impression and Recommendations - Palliative Care Impression: This is a 76-year-old gentleman with advanced end-stage Alzheimer's and Lewy body dementia, with history of behavioral issues, currently very stable and managed by a low dose of Seroquel. He is functional decline has stabilized and he is currently looking and acting very well. He has pressure wounds have resolved after home health care and in air pressure mattress. He appears calm and is thriving, is eating well and sleeping well. Palliative care will continue to monitor and transition to hospice when appropriate. Recommendations/Counseling Done: Mixed dementia with h/o behavioral disturbance: Very stable, no aggression, sleeps a lot but not over-sedated. Continue Seroquel 25mg Qpm. Constipation: Controlled with Miralax 17g daily. Pressure ulcers: Resolved, with one on L hip still resolving, healing quite nicely. She does not reposition him at night but A/P mattress works well. Dysphagia: At baseline; EMISSION TECHNICIAN evaluation, education and interventions were useful ; eg, nose cup. Failure to thrive: Improvement. Now 149 lbs, a 9-lb gain. Advanced care planning: POLST is DNR, comfort. Goal is for patient to remain at home. He currently does not meet criteria for Hospice; palliative care will monitor and transition when appropriate. TRADE SHOW COORDINATOR is following and has two more meetings planned. Time Spent: 45 minutes were spent with more than 50% of the time spent on counseling, education, and coordination of care regarding dementia, monitoring for skin integrity, monitoring for swelling/edema in extremities.
== END 2017-03-10 13:01 | disposition home or self-care (01) ==
LOC: PC 13:00
PROVIDERS: ATTEND Nurse Practitioner
DX: Z51.5 Encounter for palliative care (principal); G31.83 Neurocognitive disorder with Lewy bodies; F02.81 Dementia in other diseases classified elsewhere, unspecified severity, with behavioral disturbance; K59.00 Constipation, unspecified; L89.229 Pressure ulcer of left hip, unspecified stage; R13.10 Dysphagia, unspecified; R62.7 Adult failure to thrive; M62.81 Muscle weakness (generalized); Z66 Do not resuscitate
CPT/HCPCS: 99349

== ENCOUNTER 2017-04-16 13:55 | Outpatient (CLI) | payer MEDICARE, OTHER ==
--- NOTE | 2017-04-16 16:41 | CONSULTATION NOTE ---
Palliative Care Follow Up - Referral Referring Provider: Dr Maritnez Time of Visit: 04/16/2017 13:55 Referral setting: Home (Seen in home setting due to taxing and considerabel effort required to leave the homedue to severe lower extremity weakness and near immobiilty secondary to advanced, mixed dementia.) - Information Sources Records reviewed: Previous records reviewed History/Review of Systems obtained from: Family, Caregiver Exam limitations: Clinical condition (advanced dementia) - History of Present Illness Update Brief HPI Update: This is a pleasant 76-year-old gentleman with combination Alzheimer's and Lewy body dementia with a history of behavioral issues. He was on hospice from 2016-12/10/2016, discharged from hospice at 's request. He has been living at home with his since then. He was DC'd from [place] [facility] in Feb 2017 after several pressure wounds on his trunk were resolved. His reports he has been doing well since then. His appetite remains good and his weight was up to 149 lbs at my last visit. She has not weighed him since then. His dementia is severe (7a) but he is able at times to verbally communicate with his and caregivers in basic sentences and has episodes of lucidity, for instance in introducing himself by name to a guest in his house. He is also able to ambulate independently for a few steps. His called to have palliative care assess his R foot, which around 03/18/17 (she took a photo of it) was quite red and swollen around the toes and into the dorsal region. The big toe was especially swollen and crossed over the 2nd toe. The toes were also quite tender. Today when I assessed it, it had largely resolved. In between the toes (1,2, and 3) there are signs of resolving bullae and resolving crusty areas of rash. The 2nd toe is still moderately red and swollen and it is tender to palpation. There was no swelling or redness in the foot; it is currently limited to mainly the second toe. Toenails are yellowed with mild fungal infection His did not want to get a topical antifungal cream, and I agreed to wait and watch. I explained to her that the situation looks like it has been resolving well on its own, and rather than start an oral antibiotic for the 2nd toe which is still mildly swollen, we will wait and watch over the weekend ( today is Wednesday). I will follow up early next week, and if the toe has not improved, I will start a short antibiotic course. We can continue to wait and watch on whether a topical antifungal for tinea pedis is indicated. The and caregiver report that he occasionally coughs when drinking liquids , particularly if he brings the cup to his mouth himself because he drinks too fast. He doesn't tend to cough when the caregiver gives it to him. He had an NICK SETTER evaluation awhile ago and the therapist educated the spouse how to minimize choking risk. They still use the "nose" cup. Social History - Living Situation Living arrangement: At home Living Situation: With spouse/s.o., With caregiver(s) Support System: has caregivers 7 days per week, from 7:309:30am, 12:00-2:00pm, 3-6:00pm, spread among 4 people. Their daughter and family came there for [place]. Medications/Allergies - Medications Home Medications: Ambulatory Orders Medication Instructions Recorded Confirmed Polyethylene Glycol 3350 [Miralax] 17 gm PO DAILY 08/31/16 03/10/17 Acetaminophen [Tylenol] 650 mg PO Q8H PRN 12/25/16 03/10/17 QUEtiapine [SEROquel] 25 mg PO QPM 12/25/16 03/10/17 Senna [Senokot] 8.6 mg PO DAILY PRN 01/08/17 03/10/17 Omeprazole [PriLOSEC] 20 mg PO DAILY 02/05/17 03/10/17 Acetaminophen [Tylenol] 650 mg PO DAILY 03/10/17 03/10/17 - Allergies Allergies/Adverse Reactions: Allergies Allergy/AdvReac Type Severity Reaction Status Date / Time No Known Drug Allergies Allergy Verified 02/08/14 10:32 Review of Systems - Constitutional Constitutional: reports: Weight stable (Last weight was 149 lbs in February 2017.). denies: Poor appetite - Respiratory Respiratory: reports: Cough (occasionally when drinking) - Gastrointestinal Gastrointestinal: reports: Vomiting (several weeks ago he had a nighttime episode of vomiting; it resolved within half a day). denies: Constipation, Diarrhea, Change in bowel habits - Genitourinary Genitourinary: reports: Incontinence. denies: Frequency - Musculoskeletal Musculoskeletal: reports: Assistive devices (walker and wheelchair), Transfer issues (requires assistance) - Neurological Neurological: reports: Memory problems, Abnormal gait Physical Exam - Vital Signs Temperature: 97.7 F Pulse Rate: 63 O2 Saturation: 97 Blood Pressure: 124/84 - Physical Exam General Appearance: positive: No acute distress, Alert Eyes Bilateral: positive: EOMI, No lid inflammation, No scleral icterus ENT: positive: No signs of dehydration Neck: positive: Thyroid nml, No JVD, Trachea midline Cardiovascular: positive: Regular rate & rhythm, No murmur, No gallop Respiratory: positive: Chest non-tender, No respiratory distress, Breath sounds nml Skin: positive: Other (red, swollen, tender R 2nd toe, with crusting rash and resolving bullae between toes 1 and 2, and 2 and 3.) Extremities: positive: Nml appearance, No pedal edema Neurologic/Psychiatric: positive: Disoriented to place, Disoriented to time, Flat affect, Other (moderate-severe tremors of hands and lower extremities) Palliative Care - POLST Patient has POLST: Yes POLST Status: DNR, Comfort Measures Pain: Location (R toes 1 and 2 are tender to palpation) Tiredness/Fatigue: Mild (1-3) Drowsiness/Sedation: None Nausea: None Depression: None Anxiety: Mild (1-3) (only during my assessment of his toes, which are sensitive and tender to palpation) Dyspnea: None Anorexia: None Sleep: Sleeps well Constipation: No - Palliative Care Discussion: The patient is stable but overall has declined in functionality and cognition over the past year. His says she feels fine, but her body doesn't. She has done a stellar job of organizing 5-[id number]-[id number]-week caregiving and household staff to help her out and work with her . He is calm and appears to be doing very well, within the limits of his declining cognition and functionality. His is quite active in caregiving support groups and advocating for her . Family dynamics are complicated, and she states that they were along on because they had expected their daughter to come, but she did not. However, on , the daughter's family was there. This includes the 7 year old granddaughter, who had not spoken to her grandfather (the patient) for a year. He had done something to frighten her. Previous to that, the two of them had been very close since her . During the [place] festivities, the granddaughter did make overtures to the patient, and this gave hope to his . Goals of care continue to be comfort care and maximize his quality of life. Palliative care will continue to monitor and transition to Hospice when appropriate. Impression and Recommendations - Palliative Care Impression: This is a 76-year-old gentleman, retired from the [employer], with advanced end-stage Alzheimer's and Lewy body dementia, with a history of behavioral issues but none recently. He is well taken care of in his home setting, with outside care giving help 7 days a week. is at risk of progressive care manager burnout. Patient is at increased risk of respiratory infections, falls, and their sequelae. He does not currently meet criteria for Hospice, and would benefit from continued palliative care oversight and monitoring for appropriate transition to Hospice. Recommendations/Counseling Done: Mixed dementia w/history of behvioral disturbanceb: He has been very stable, without aggression. Continue Seroquel 25mg daily. Pain, R toes 2 and 3: Resolving since one month ago. Watch and wait over the weekend the redness/swelling of 2nd toe. If no improvement by early next week, will start a short course of Bactrim or Keflex. Also consider topical -azole antifungal. Today the spouse declined starting a topical cream. She was interested in trying vinegar. I counselled it might be painful on the red parts , or if there is an open area. they will keep the toes exposed to the air as much as possible (ie, avoid wearing socks), and are using a pedicure foam spacer to spread the toes to allow airflow into the intertriginous areas. Dysphagia: At baseline, he has occasional episodes of coughing when he drinks liquids on his own, not so much when the caregiver helps him drink. They continue to follow NICK SETTER advice and use the "nose" cup. Advanced care planning: No change; goal continues to be comfort, maximize quality of life, keep him at home through end of life. Continue Palliative Care oversight and monitor for eventual transition to Hospice when appropriate. Follow up with spouse early next week about starting oral antibiotics if swelling and pain has not resolved. Time Spent: 30 minutes were spent with more than 50% of the time spent on counseling and education on bacterial and fungal infections, cellulitis, dementia, advanced care.
== END 2017-04-16 13:56 | disposition home or self-care (01) ==
LOC: PC 13:55
PROVIDERS: ATTEND Nurse Practitioner
DX: Z51.5 Encounter for palliative care (principal); G31.83 Neurocognitive disorder with Lewy bodies; F02.81 Dementia in other diseases classified elsewhere, unspecified severity, with behavioral disturbance; M79.674 Pain in right toe(s); R23.8 Other skin changes; R13.10 Dysphagia, unspecified; Z66 Do not resuscitate
CPT/HCPCS: 99348

== ENCOUNTER 2017-04-23 15:58 | Outpatient (CLI) | payer MEDICARE, OTHER ==
--- NOTE | 2017-04-23 16:23 | CONSULTATION NOTE ---
Palliative Care Follow Up - Referral Referring Provider: Dr Martinez Time of Visit: 04/23/17 13:05-13:35 Referral setting: Adult Family Home (Patient is seen in home setting due to taxing and considerable effort to leave the home secondary to advanced dementia and a very limited mobility.) - Information Sources Records reviewed: Previous records reviewed History/Review of Systems obtained from: Family, Caregiver Exam limitations: Clinical condition (advanced dementia) - History of Present Illness Update Brief HPI Update: This is a pleasant 76-year-old gentleman with combination Alzheier's and Lewy body dementia with a history of behavioral issues., He was DC'd from Hospice in Nov 2016 at his 's request and has been lviing at home with his since then, with support from care givers. He was receiving Home Health wound care for several pressure wounds on his trunk and was DC'd from wound are in Feb 2017. He has been experiencing waxing and waning redness and swelling in his feet, worse on the R foot. Redness and swelling are relieved with elevation. He has crusting blisters and open areas between left toes 1,2, and 3. We have been doing "wait and see" since my visit on April 21. The wounds are not resolving and the swelling and redness persist, although are ameliorated with elevation. I provided a sample of InterDry antibacterial moisture-wicking fabric that his can weave between his toes to keep them dry and aired. I will also start a course of antibiotics. His reports a recurring rash on his chest, worse in the mornings and clears up during the day. She has not changed laundry detergent or introduced any new products, and she has washed his bed linen. He does wear a microfiber shirt to bed. Medications/Allergies - Medications Home Medications: Ambulatory Orders Medication Instructions Recorded Confirmed Polyethylene Glycol 3350 [Miralax] 17 gm PO DAILY 08/31/16 03/10/17 Acetaminophen [Tylenol] 650 mg PO Q8H PRN 12/25/16 03/10/17 QUEtiapine [SEROquel] 25 mg PO QPM 12/25/16 03/10/17 Senna [Senokot] 8.6 mg PO DAILY PRN 01/08/17 03/10/17 Omeprazole [PriLOSEC] 20 mg PO DAILY 02/05/17 03/10/17 Acetaminophen [Tylenol] 650 mg PO DAILY 03/10/17 03/10/17 - Allergies Allergies/Adverse Reactions: Allergies Allergy/AdvReac Type Severity Reaction Status Date / Time No Known Drug Allergies Allergy Verified 02/08/14 10:32 Palliative Care - Palliative Care Discussion: His is at risk for caregiver burnout, but she continues to soldier on in a difficult situation. She is very devoted to his comfort and welfare and is determined that he remain at home to the end of his life, when that time comes. She is very resourceful attends conferences on dementia, goes to the caregiver support group at [place], and advocates for herself and her . She is about to lose several of her care givers, and so she is doing what's necessary to hire replacements. She goes to the "job board" of the [facility] to hire caregivers. Currently she ipays her caregivers $20 hour, and this is a stretch. She does not financially qualify for [employer]. Impression and Recommendations - Palliative Care Impression: This is a [id number] gentleman, retired from the [employer], with advanced end- stage Alzheimer's and Lewy body dementia, with a history of behavioral issues, but none recently. He currently has a cellulitis of the R foot, with swelling and redness of both extremities, likely vascular in origin. He is at risk for infections, falls, and their sequelae. His is at risk for insurance healthcare consultant burnout, is about to lose two of her caregivers and will need to find replacements. Palliative care will continue to monitor and provide oversight, and transition the patient to Hospice when appropriate. Recommendations/Counseling Done: R foot cellulitis: Start Bactrim DS BID for 5 days. Likely vascular in origin. Elevate legs throughout the day to ameliorate the swelling/redness. Chest, rash: Worse in the mornings, clears up during the day. Switch from microfiber shirt to 100% cotton shirt. Use hydrocortisone 1% cream for symptom relief. Consider using hydrocortisone 2.5% if 1% is ineffectual. Advanced care planning: POLST in place. Goal is comfort care, maximize quality of life, and to remain at home through to end of life. Spouse is currently hiring new care givers due to attrition. Time Spent: 30 minutes were spent with more than 50% of the time spent on counseling, education, and coordination of care.
== END 2017-04-23 15:59 | disposition home or self-care (01) ==
LOC: PC 15:58
PROVIDERS: ATTEND Nurse Practitioner
DX: Z51.5 Encounter for palliative care (principal); G31.83 Neurocognitive disorder with Lewy bodies; F02.81 Dementia in other diseases classified elsewhere, unspecified severity, with behavioral disturbance; L03.115 Cellulitis of right lower limb; R21 Rash and other nonspecific skin eruption; R23.8 Other skin changes; Z66 Do not resuscitate
CPT/HCPCS: 99348

== ENCOUNTER 2017-11-01 13:50 | Outpatient (CLI) | payer MEDICARE, OTHER ==
--- NOTE | 2017-11-01 18:08 | CONSULTATION NOTE ---
Palliative Care Follow Up - Referral Referring Provider: Dr Lisbeth Martinez Time of Visit: 11/01/2017. 13:50 - 14:45 Referral setting: Home (Seen in home setting due to taxing and considerable effort required to leave the home due to advanced dementia and immobility.) Referral Reason: Rash on back - Information Sources Records reviewed: Previous records reviewed History/Review of Systems obtained from: Family, Caregiver Exam limitations: Clinical condition (advanced dementia; non-verbal) - History of Present Illness Update Brief HPI Update: FACE to FACE for HOME HEALTH NURSING Patient had advanced dementia, and is immobile and unable to reposition himself. He has a Stage I pressure wound on sacral region of the trunk. The patient and his spouse and hired caregivers would benefit from Home Health Nursing for wound care, education on wound prevention, proper repositioning technique, and support. Spouse in particular needs assistance and education on methods to reposition the patient in his bed; she is alone at night with no caregiver support, the patient sleeps 12-14 hours a night and doesn't move in bed. 77-year-old man with combination Alzheimer's and Lewy body dementia and a history of behavior issues. He was previously on Hospice, discharged in November 2016 at his 's request. He has been living at home with his since then , aided by part-time hired caregivers. Medical history: Advanced dementia (FAST 7e) with history of behavior issues, GERD, h/o urinary retention, incontinence , chronic hearing loss, osteoarthritis. His denies h/o HTN, HLD, CAD. -On Wednesday (today is Wednesday) caregivers noted diffuse areas of non-tender, non- pruritic, red, roughened areas spread in a diffuse bilateral pattern on his back. The patient doesn't appear in distress or uncomfortable. The red patches have very small whiteheads, possibly clogged sweat glands. There are a few more reddened areas today. -The weather has been quite hot and patient's spouse reports it was finance analyst the house. The patient spends much of his day in a leather recliner, she was concerned this may be a heat rash, so she has covered the leather with a cotton towel, and is dressing the patient in cotton or moisture wicking fabric. -The lesions may be a combination of pressure and heat rash. -Patient also has an Stage I pressure wound on sacral / coccyx area. -Patient does have an STACEY mattress and semi-electric hospital bed. -Patient's legs and feet get red and swollen which improves with elevation, likely vascular. -Today lower extremities are not edemic, and are mildly red while in dependent position. -Caregiver and spouse note that he is starting to cough when drinking liquids. They report no coughing with eating. He is on regular texture food, they do not chop it up finely. Social History - Living Situation Living arrangement: At home Living Situation: With spouse/s.o., With caregiver(s) Support System: Patient lives with his spouse. She has manages a number of caregivers who do much of the hands-on work. Medications/Allergies - Medications Home Medications: Ambulatory Orders Medication Instructions Recorded Confirmed Polyethylene Glycol 3350 [Miralax] 17 gm PO DAILY PRN 08/31/16 11/01/17 Acetaminophen [Tylenol] 650 mg PO Q8H PRN 12/25/16 11/01/17 QUEtiapine [SEROquel] 25 mg PO QPM 12/25/16 11/01/17 Omeprazole [PriLOSEC] 20 mg PO DAILY 02/05/17 11/01/17 - Allergies Allergies/Adverse Reactions: Allergies Allergy/AdvReac Type Severity Reaction Status Date / Time No Known Drug Allergies Allergy Verified 02/08/14 10:32 Review of Systems - Constitutional Constitutional: reports: Fatigue, Weakness, Weight loss (Current weight unknown ; he is too unstable to stand on scales. Last weight was 149 lbs. Previous baseline, before he was hospitalized last year, was 170-175 lbs.) - Cardiovascular Cardiovascular: reports: Decr. exercise tolerance - Respiratory Respiratory: denies: SOB at rest - Gastrointestinal Gastrointestinal: denies: Constipation - Genitourinary Genitourinary: reports: Incontinence (bowel and bladder) - Musculoskeletal Musculoskeletal: reports: Assistive devices (wheelchair and walker), Transfer issues (Very unstable balance, lower extremities tremble.) - Neurological Neurological: reports: General weakness, Memory problems, Pre-existing deficit, Abnormal gait - Psychiatric Psychiatric: denies: Aggitation, Behavior disturbances Physical Exam - Vital Signs Temperature: 96.7 F Pulse Rate: 65 O2 Saturation: 95 (room air) Blood Pressure: 130/85 - Physical Exam General Appearance: positive: No acute distress, Alert Eyes Bilateral: positive: EOMI, No lid inflammation, Conjunctivae nml, No scleral icterus ENT: positive: No signs of dehydration Neck: positive: No JVD, Trachea midline Cardiovascular: positive: Regular rate & rhythm, No murmur, No gallop Respiratory: positive: Chest non-tender, No respiratory distress, Breath sounds nml Abdomen: positive: Soft, Nml bowel sounds, Taut Skin: positive: Wound (Diffuse, bilateral red, lesions on back. One is swollen. They have what could be clogged sweat glands with pinpoint whiteheads. Patient doesn't appear uncomforable or in pain.), Pressure wound (Stage I bilateral sacral area) Extremities: positive: Pedal edema (mild) Palliative Care - POLST Patient has POLST: Yes POLST Status: DNR, Comfort Measures Performance Status: FAST 7D dementia scale. Very unsteady gait poor balance. Tremors in upper extremities. Requires full assistance for ADLs, transfers, ambulation. Starting to choke with fluids, continues to eat regular texture foods. - Palliative Care Discussion: The patient's engages a number of caregivers to take care of the patient during daylight hours. He goes to bed around 5-6pm and sleeps until 8-9am, not getting up during the night. The spouse counts on her caregivers to do his skin inspections; I recommended she start doing that herself on a regular basis, as oversight. This rash on the patient's back was discovered by one of the caregivers. The spouse says she is holding up alright. She recently went on a week-long vacation for a family celebration back [facility]. Her son and daughter took turns spending the night, and the caregivers took care of the patient during the days. She has been involved in caregiver support groups and other outreach activities ; she is pulling back a little from that. We discussed the patient's slow decline, and looking forward, what she would want to do if he has a sudden downturn or an acute event. She became tearful, stating that she knows he would not want to live this way, so she doesn't want to prolong his life. But if the moment comes where he is in distress with an acute condition change, she will likely call 911. I did speak about morphine and its use as a tool in case of acute conditions, particularly respiratory distress. In this instance, I am not confident about having it on hand, due to the amount of training and education required; the risks outweigh the benefits, and the patient has no history of respiratory ailments or diagnoses. What the spouse and caregivers would benefit from is Home Health nursing support and education on skin care, and wound care for the stage 1 sacral pressure wound. Impression and Recommendations - Palliative Care Impression: 77 year old gentleman with advanced, end-stage dementia (FAST 7D) with acute rash on back, and stage I pressure wound on sacral area, would benefit from assessment, treatment and monitoring from Home Health RN. Recommendations/Counseling Done: Stage I sacral pressure wound: Referral to Home Health RN for wound care, education, and support of spouse and caregivers. Patient has STACEY mattress and hospital bed in place. Bilateral rash on back: Acute rash with distinct boundaries in diffuse pattern ; non-tender, non-pruritic. Spouse is protecting his skin from the leather recliner and is putting breathable fabrics on him. The lesions may be from a combination of heat and pressure. Consult with fitness and wellness director. Patient has h/ o skins conditions: rash on chest, redness and swelling on feet with crusting blisters between toes. Dementia with h/o behaviors: Steady decline in function and cognition. Mostly non-verbal, only one-two recognizable words. His [place] buddies still come over on weekends to walk him around. Dyphagia: Increased coughing with drinking liquids. I provided education on using thickened liquids and also recommend that they start to chop his food finely. They report he is still able to chew, doesn't choke with food, only with liquids. He had speech therapy assessment in December 2016. Spouse declined offer of another speech therapy assessment; feels chopping food finer will help, and she has fluid thickener and may try it. Advanced care planning: Comfort care is the goal, POLST is DNR. Spouse does not want prolongation of life, knows her "wouldn't want to live like this," but the spouse admits she would likely would call EMS in case of acute decline or change in condition. Spouse calls Palliative Care on an as-needed basis. Follow up in 7-10 days regarding the wound, then back to the as-needed schedule. Time Spent: 55 minutes were spent with more than 50% of the time spent on counseling, education, anticipatory guidance and coordination of care.
== END 2017-11-01 13:51 | disposition home or self-care (01) ==
LOC: PC 13:50
PROVIDERS: ATTEND Nurse Practitioner
DX: Z51.5 Encounter for palliative care (principal); L89.151 Pressure ulcer of sacral region, stage 1; R21 Rash and other nonspecific skin eruption; G30.9 Alzheimer's disease, unspecified; F02.81 Dementia in other diseases classified elsewhere, unspecified severity, with behavioral disturbance; R13.10 Dysphagia, unspecified; R63.4 Abnormal weight loss; Z66 Do not resuscitate
CPT/HCPCS: 99349